=== PATIENT | female | born 1955 | race Caucasian/White ===

== ENCOUNTER 2018-10-06 13:25 | Outpatient (CLI) | END 2018-10-06 13:26 | disposition home or self-care (01) | LOC: LAB 13:25 | PROVIDERS: ATTEND Family Medicine | DX: I10 Essential (primary) hypertension (principal) | CPT/HCPCS: 36415; 80053; 80061; 85025 ==

== ENCOUNTER 2018-10-15 08:13 | Outpatient (CLI) ==
--- NOTE | 2018-10-16 08:04 | MRI ---
EXAM: Brain MRI with without contrast. HISTORY: Onset of chorea symptoms a few months ago. COMPARISON: None. TECHNIQUE: Multiplanar, multisequence MR images were acquired of the brain without contrast. FINDINGS: The midline structures are central and there is no cerebellar tonsillar ectopia. The vent ricles, sulci and cisterns are mildly enlarged. There are no abnormal extra-axial fluid collections. The brain parenchyma has no diffusion restriction to suggest acute hypoperfusion or infarction. Ther e is a small posterior left frontal gatito hole and a left frontal ventriculostomy tract with small to moderate area of surrounding gliosis in the anterior left frontal lobe that extends to the left front al horn of the lateral ventricle. The surrounding gliosis is larger than is typical for ventriculost guanaco tract and likely represents an area of encephalomalacia. There is also a small focal area of cys tic encephalomalacia in the more anterior superomedial left frontal lobe that has an ovoid 5 mm x 3 m m cystic component and surrounding hyperintense T2 signal gliosis. There is a chronic lacuna or dila neda perivascular space in the anterior superior medial right frontal lobe (image 18) and several dila neda perivascular spaces are also noted in the bilateral parietal subcortical and periventricular whit e matter. There are a moderate number of small T2 hyperintensities in the supratentorial white matte r and a possible small focal T2 hyperintensity in the lateral left middle cerebellar peduncle at its junction with the cerebellum. A chronic petechial hemorrhage is present in the left thalamus. A pun ctate focus of dark gradient echo signal is also present in the anterior inferior left basal ganglia with dark gradient echo signal. This may represent a micro calcification that may be vascular and le ss likely a chronic petechial hemorrhage. The corpus callosum is normal. 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 The pituitary gland is enlarged and extends into the suprasellar cistern. It measures in its entiret y 9.5 mm AP by 14.2 mm TX by 11.7 mm CC. It extends into the suprasellar cistern anterior to the opt ic chiasm which is mildly elevated. The pituitary gland has a bilobed configuration with a crescenti c component of intermediate T1 signal intensity inferiorly that may represent normal residual gland a nd a mildly hyperintense T1 / FLAIR and hypointense T2 ovoid component superiorly that extends from t he sella into the suprasellar cistern. This probably represents a complex cystic lesion which measur es 6.8 mm AP by 8.6 mm TX by 8.5 mm CC. Dedicated pituitary MRI could better define the anatomy. There are no intraorbital masses. Two small focal areas of focal mucosal thickening are present shanti g the anterior wall of the left maxillary sinus. Remainder of the paranasal sinuses, middle ears and mastoids are unremarkable. There is no abnormal contrast enhancement in the internal auditory canal s or labyrinthine structures. There is a well-circumscribed 1.4 cm AP by 1 cm TX by 1.5 cm CC epidermal inclusion cyst in the right lateral cheek. Expected flow voids are present in the major intracranial arteries and dural venous sinuses. IMPRESSION: 1. Mild diffuse cerebral volume loss, moderate chronic ischemic small vessel disease and small area of cystic encephalomalacia anterior superomedial left frontal lobe. This may be post-traumatic or po st-infarctive. 2. 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 This may represent a focal area of post-traumatic or post-infarctive encephalomalacia associated with the ventriculostomy tract. 3. Unexpected result. Mildly enlarged pituitary gland with a 6.8 mm AP by 8.6 mm TX by 8.5 mm CC co mplex mildly hyperintense T1, dark T2 lesion that extends into the suprasellar cistern abutting the a nterior optic chiasm which is mildly elevated. Clinical considerations include a complex pituitary c yst or cystic lesion. Tumor is considered less likely. Dedicated pituitary MRI could better define the anatomy. 4. Chronic petechial hemorrhage, left thalamus. 5. No hydrocephalus or acute cerebral infarct.
== END 2018-10-15 08:14 | disposition home or self-care (01) ==
LOC: RAD 08:13
PROVIDERS: ATTEND Family Medicine
DX: G25.5 Other chorea (principal); R27.0 Ataxia, unspecified

== ENCOUNTER 2018-10-17 11:57 | Outpatient (CLI) | END 2018-10-17 11:58 | disposition home or self-care (01) | LOC: RHC-LAB 11:57 → FCC-LAB 11:58 | PROVIDERS: ATTEND Family Medicine | DX: G25.5 Other chorea (principal); E23.6 Other disorders of pituitary gland; R93.89 Abnormal findings on diagnostic imaging of other specified body structures | CPT/HCPCS: 36415; 83001; 83002; 84146; 84305; 84443 ==

== ENCOUNTER 2018-10-18 14:17 | Outpatient (CLI) | END 2018-10-18 14:18 | disposition home or self-care (01) | LOC: RHC-LAB 14:17 → FCC-LAB 14:18 | PROVIDERS: ATTEND Family Medicine | DX: G25.5 Other chorea (principal); E23.6 Other disorders of pituitary gland; R93.89 Abnormal findings on diagnostic imaging of other specified body structures | CPT/HCPCS: 82530 ==

== ENCOUNTER 2018-10-25 14:00 | Outpatient (RCR) ==
--- NOTE | 2018-10-10 16:22 | RS.OPPTEV2 ---
Date of Note: 10/10/18 Visit #: 1 Number of visits approved by Insurance: pending Date of Evaluation: 10/10/18 Payer Source: Medicaid Surgery Performed?: No Treatment Diagnosis: chorea, ataxia, decreased strength, decreased balance. History of Condition/Mechanism of Injury:: pt reports she has had some difficulty with walking. No definite injury reported. Prior Level of Function.....Patient was independent with: Work/Vocation, Ambulation/Mobility, Community Integration/Access Level of Function: pt is independent with amb without AD, indepenent with ADL's Functional Limitations: Bending, Squatting, Ambulation, Community Access/ Integration Current Subjective/complaints:: pt reports she had been having increased difficulty walking, however feels has gotten a little better. No recent falls, states she is very careful with stairs due to visual deficits. Treatment Side (optional): N/A *Precautions: fall precautions Medical History Medical History: Hypertension, Arthritis Medical History Comments:: histoplasmosis Surgical History Comments:: 2 eye surgeries, L wrist ORIF, Smoking Status: Former smoker Hx Home Medications: Losartan for blood pressure Patient's Goals: be stronger and more steady on my feet. Get back to walking 1 mile per day. Functional Outcome Measure Dynamic Gait: 17 - G Codes & Severity Modifier G Codes & Modifier: n/a Source of G Code score: n/a Observation - Observation Inspection: pt demonstrates choreic movements. Posture: Forward Head, Rounded Shoulders Handedness: Right Gait - Gait Pattern General Gait Pattern Observation: Ataxic Gait Gait Comments: pt amb with ataxic gi General Range of Motion: BUE WFL's. BLE WFL's Muscle Strength: BUE 4+/5. BLE hip flex 4/5, knee flex/ext 4+/5, ankle DF/PF 4+ /5 Palpation Palpation Findings: None/Normal Sensation - Sensation Right Upper Extremity: Intact/Normal Left Upper Extremity: Intact/Normal Right Lower Extremity: Intact/Normal Left Lower Extremity: Intact/Normal Balance - Sitting Balance Static Sitting Balance: Normal Dynamic Sitting Balance: Normal - Standing Balance Static Standing Balance: Good Dynamic Standing Balance: Fair - Comments Balance Assessment Comments: Dyn gait index 17/24 risk of falls. Gait speed 0.96 meters/sec consistent with community ambulator Interventions - Exercise/Activities/Manual Therapy Exercises/Activities: pt performed BLE isometric hip add, resisted hip abd and resisted hip flex with green theraband, sit to/from stand from chair without using UE, bridging 5-10 reps. Manual Therapy: n/a HOME EXERCISE PROGRAM: pt given written HEP including: isometric hip add, resisted hip abd and resisted hip flex with green t band, bridging, sit to/from stand from chair without using UE. - Charges Timed Code Treatment Minutes: 51 Total Treatment Time: 59 Procedures billed for this date of service:: alciraal low, ex EVALUATION COMPLEXITY LEVEL EVALUATION COMPLEXITY LEVEL: HISTORY: Low, EXAM OF BODY SYSTEMS: Medium, CLINICAL PRESENTATION: Medium, CLINICAL DECISION MAKING: Low Assessment Assessment: pt present with ataxic gait, decreased strength, balance as well as demonstrates choreic movements. Feel pt would benefit from skilled PT for therex for core strengthening, dyn balance as well as LE strengthening to decrease risk of falls and improve functional mobility. Patient Education: Home Exercise Program, Education of Plan of Care Rehab Potential: Good Short Term Goals Goal #1: pt independent with initial HEP Goal to be met by: 10/26/18 Goal #2: Improve BLE strength 5/5 Goal to be met by: 10/26/18 Goal #3: Improve dyn gait index 19/24 Goal to be met by: 10/26/18 Goal #4: Improve gait speed 1.0 meters/sec Goal to be met by: 10/26/18 Take Out Waiter/Waitress Goals Goal #1: pt report increased ability to perform normal daily activities w no falls Goal to be met by: 11/09/18 Goal #2: pt with dyn gait index 21/24 to be consistent with low risk of falls Goal to be met by: 11/09/18 Goal #3: pt able to amb up/down steps reciprocally no LOB Goal to be met by: 11/09/18 Plan - Treatment to be Provided Procedures: Therapeutic Exercises, Therapeutic Activity, Gait Training, Neuromuscular Rehab, Patient Education Modalities: No Modalities - Treatment Plan Frequency: 2-3x a week Duration: 4 weeks Dates of Take Out Waiter/Waitress Goals: 11/09/18 Expiration date of current Insurance Approval:: pending - Treatment Code (1) Chorea Code(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
--- NOTE | 2018-10-16 15:23 | RS.OPPTDN ---
Subjective Date of Note: 10/16/18 Visit #: 2 Number of visits approved by Insurance: Pending Date of Evaluation: 10/10/18 Payer Source: Medicaid Treatment Diagnosis: chorea, ataxia, decreased strength, decreased balance. Current Subjective/complaints:: Patient reports she feels she did well with exercise today and will check on getting cuff weights for HEP. *Precautions: fall precautions Interventions - Exercise/Activities/Manual Therapy Exercises/Activities: 3# for alt hook-lying hip flexion and 3# SAQ. 2# for SLR. Red theraband for resisted ankle df. Isometric hip flexion and isometric hip add with ball. LTR with ball. Bridging. In sitting, bilateral shoulder flexion while holding ball, then horizontal abd to both sides. Sit to/from stand from chair without using UE. Discussed home safety and HEP. Patient given copy of new exercises. Total minutes of Exercise: 42mins Manual Therapy: n/a HOME EXERCISE PROGRAM: pt given written HEP including: isometric hip add, resisted hip abd and resisted hip flex with green t band, bridging, sit to/from stand from chair without using UE. - Charges Timed Code Treatment Minutes: 42mins Total Treatment Time: 42mins Procedures billed for this date of service:: EX3 Assessment: Patient attentive to instruction and appears motivated to progress with exercise. Patient Education: Home Exercise Program, Home Safety, Activity Modification Patient demonstrates compliance with HEP?: Yes Short Term Goals Goal #1: pt independent with initial HEP Goal to be met by: 10/26/18 Progress towards Goal:: Progressing Goal #2: Improve BLE strength 5/5 Goal to be met by: 10/26/18 Goal #3: Improve dyn gait index Goal to be met by: 10/26/18 Goal #4: Improve gait speed 1.0 meters/sec Goal to be met by: 10/26/18 Box Strapper Goals Goal #1: pt report increased ability to perform normal daily activities w no falls Goal to be met by: 11/09/18 Goal #2: pt with dyn gait index to be consistent with low risk of falls Goal to be met by: 11/09/18 Goal #3: pt able to amb up/down steps reciprocally no LOB Goal to be met by: 11/09/18 Plan Dates of Box Strapper Goals: 11/09/18 Expiration date of current Insurance Approval:: 11/09/18 PLAN: Progress with exercise and with balance activities to increase safety with all functional activities.
--- NOTE | 2018-10-19 13:31 | RS.OPPTDN ---
Subjective Date of Note: 10/18/18 Visit #: 3 Number of visits approved by Insurance: NA Date of Evaluation: 10/10/18 Payer Source: Medicaid Treatment Diagnosis: chorea, ataxia, decreased strength, decreased balance. Current Subjective/complaints:: Reports she has only worked on HEP a little. States she will increase times per day. *Precautions: fall precautions Interventions - Exercise/Activities/Manual Therapy Exercises/Activities: 3# for alt hook-lying hip flexion and 3# SAQ. 2# for SLR. Red theraband for resisted ankle df. Isometric hip flexion and isometric hip add with ball. LTR with ball. Isometric ankle inversion with ball. Bridging. In sitting, bilateral shoulder flexion while holding ball, then horizontal abd to both sides. Green theraband for scap retraction. Side stepping at hand rail. Patient given copy of new exercises. Total minutes of Exercise: 45mins Manual Therapy: n/a HOME EXERCISE PROGRAM: pt given written HEP including: isometric hip add, resisted hip abd and resisted hip flex with green t band, bridging, sit to/from stand from chair without using UE. - Charges Timed Code Treatment Minutes: 45mins Total Treatment Time: 45mins Procedures billed for this date of service:: EX3 Assessment: Patient progressing with strengthening and balance activity. Patient Education: Body/Joint mechanics, Home Exercise Program Patient demonstrates compliance with HEP?: Yes Short Term Goals Goal #1: pt independent with initial HEP Goal to be met by: 10/26/18 Progress towards Goal:: Met Goal #2: Improve BLE strength 5/5 Goal to be met by: 10/26/18 Goal #3: Improve dyn gait index Goal to be met by: 10/26/18 Goal #4: Improve gait speed 1.0 meters/sec Goal to be met by: 10/26/18 Residential Goals Goal #1: pt report increased ability to perform normal daily activities w no falls Goal to be met by: 11/09/18 Goal #2: pt with dyn gait index to be consistent with low risk of falls Goal to be met by: 11/09/18 Goal #3: pt able to amb up/down steps reciprocally no LOB Goal to be met by: 11/09/18 Plan Dates of Executive Marketing Assistant Goals: 11/09/18 Expiration date of current Insurance Approval:: 11/09/18 PLAN: Progress strengthening and high level balance activity.
--- NOTE | 2018-10-22 15:29 | RS.OPPTDN ---
Subjective Date of Note: 10/22/18 Visit #: 4 Number of visits approved by Insurance: Pending Date of Evaluation: 10/10/18 Payer Source: Medicaid Treatment Diagnosis: chorea, ataxia, decreased strength, decreased balance. Current Subjective/complaints:: Patient reports she is doing HEP and feels she is seeing progress with her strength and coordination. States she purchased small adjustable cuff weights. *Precautions: fall precautions Interventions - Exercise/Activities/Manual Therapy Exercises/Activities: 3# for alt hook-lying hip flexion and 3# SAQ. Increased to 3# for SLR. Began alt UE and LE lifts in [id number] or " bug" with 1# to each wrist and 3# to each ankle. Isometric hip flexion and isometric hip add with ball. LTR with ball and bilateral LE lift with ball. Isometric ankle inversion with ball. Bridging. Green theraband for hip abd in hook-lying. In sitting, bilateral shoulder flexion while holding ball and 1# to each wrist, then horizontal abd to both sides. Green theraband for scap retraction. Ended with patient back in supine with assist for alt UE and LE flex or " bug" with 1# to wrists and 3# to ankles. Total minutes of Exercise: 49mins Manual Therapy: n/a HOME EXERCISE PROGRAM: pt given written HEP including: isometric hip add, resisted hip abd and resisted hip flex with green t band, bridging, sit to/from stand from chair without using UE. - Charges Timed Code Treatment Minutes: 49mins Total Treatment Time: 52mins Procedures billed for this date of service:: EX3 Assessment: Increased challenges to UE/LE coordination and strengthening. Patient Education: Home Exercise Program, Activity Modification Patient demonstrates compliance with HEP?: Yes Short Term Goals Goal #1: pt independent with initial HEP Goal to be met by: 10/26/18 Progress towards Goal:: Met Goal #2: Improve BLE strength 12/02 Goal to be met by: 10/26/18 Progress towards Goal:: Progressing Goal #3: Improve dyn gait index Goal to be met by: 10/26/18 Goal #4: Improve gait speed 1.0 meters/sec Goal to be met by: 10/26/18 Hr Manager Goals Goal #1: pt report increased ability to perform normal daily activities w no falls Goal to be met by: 11/09/18 Progress towards goal: Progressing Goal #2: pt with dyn gait index to be consistent with low risk of falls Goal to be met by: 11/09/18 Goal #3: pt able to amb up/down steps reciprocally no LOB Goal to be met by: 11/09/18 Plan Dates of Usp Goals: 11/09/18 Expiration date of current Insurance Approval:: 11/09/18 PLAN: Progress with strengthening and coordination exercises to increase patients safety and functional activity level.
--- NOTE | 2018-10-25 16:06 | RS.OPPTDN ---
Subjective Date of Note: 10/25/18 Visit #: 5 Number of visits approved by Insurance: pending Date of Evaluation: 10/10/18 Payer Source: Medicaid Treatment Diagnosis: chorea, ataxia, decreased strength, decreased balance. Current Subjective/complaints:: Patient reports she is getting stronger and seems to have better balance and coordination. *Precautions: fall precautions Interventions - Exercise/Activities/Manual Therapy Exercises/Activities: All in supine. 3# for alt hook-lying hip flexion and 3# SAQ. 3# for SLR. Alt LE lifts with 3# to ankles and 3# Wand for overhead flexion in hook-lying. Isometric hip flexion and isometric hip add with ball. LTR with ball and bilateral LE lift with ball. Isometric ankle inversion with ball. Bodyblade overhead. Bridging. Green theraband for hip abd in hook-lying. In sitting, bilateral shoulder flexion while holding ball and 1# to each wrist, then horizontal abd to both sides. Green theraband for scap retraction. Stationary bike [id number] (not included in direct time). Began leg press 45#, 3s/ 15reps. Total minutes of Exercise: 49mins/59mins Manual Therapy: n/a HOME EXERCISE PROGRAM: pt given written HEP including: isometric hip add, resisted hip abd and resisted hip flex with green t band, bridging, sit to/from stand from chair without using UE. - Charges Timed Code Treatment Minutes: 49mins Total Treatment Time: 59mins Procedures billed for this date of service:: EX3 Assessment: Patient progressing with strengthening and reporting improvement with balance and coordination. Patient Education: Home Exercise Program Patient demonstrates compliance with HEP?: Yes Short Term Goals Goal #1: pt independent with initial HEP Goal to be met by: 10/26/18 Progress towards Goal:: Met Goal #2: Improve BLE strength 12/02 Goal to be met by: 10/26/18 Progress towards Goal:: Progressing Goal #3: Improve dyn gait index Goal to be met by: 10/26/18 Goal #4: Improve gait speed 1.0 meters/sec Goal to be met by: 10/26/18 [facility] Goals Goal #1: pt report increased ability to perform normal daily activities w no falls Goal to be met by: 11/09/18 Progress towards goal: Progressing Goal #2: pt with dyn gait index to be consistent with low risk of falls Goal to be met by: 11/09/18 Goal #3: pt able to amb up/down steps reciprocally no LOB Goal to be met by: 11/09/18 Plan Dates of Supervisor Ship Maintenance Services Goals: 11/09/18 Expiration date of current Insurance Approval:: 11/09/18 PLAN: Progress with strengthening and balance activity to increase functional gait and activity level.
== END 2018-10-28 23:59 ==
PROVIDERS: ATTEND Family Medicine
DX: G25.5 Other chorea (principal); R27.0 Ataxia, unspecified

== ENCOUNTER 2018-11-01 14:00 | Outpatient (RCR) ==
--- NOTE | 2018-10-30 15:52 | RS.OPPTDN ---
Subjective Date of Note: 10/30/18 Visit #: 6 Number of visits approved by Insurance: pending Date of Evaluation: 10/10/18 Payer Source: Medicaid Treatment Diagnosis: chorea, ataxia, decreased strength, decreased balance. Current Subjective/complaints:: Patient reports she is working on HEP. States she feels her balance and coordination are better. *Precautions: fall precautions Interventions - Exercise/Activities/Manual Therapy Exercises/Activities: All in supine. 3# for alt hook-lying hip flexion and 3# SAQ. 3# for SLR. Double SAQ with 3# to each ankle with ball between feet. Alt LE lifts with 3# to ankles and 3# Wand for overhead flexion in hook-lying. Isometric hip flexion and isometric hip add with ball. LTR with ball with alt direction horz shoulder abd with ball. Resistive LTR with blue theraband. UE horz shldr abd and UE diagonals with blue theraband. Isometric ankle inversion with ball. Bridging. Blue theraband for hip abd in hook-lying. Resistive hip abd with knee in ext with blue theraband. In sitting, bilateral shoulder flexion while holding ball and 1# to each wrist, then horizontal abd to both sides. Green theraband for scap retraction with wand. Stationary bike x4mins ( not included in direct time). Side-stepping, heel toe, and [place] walking at [facility]. Mini-squats, toe-ups, and alt hip abd. UE and LE ext at wall leanding on large therapy ball, patient has difficulty and performs single UE and single LE lifts. Ball chest passing. Total minutes of Exercise: 54mins Manual Therapy: n/a HOME EXERCISE PROGRAM: pt given written HEP including: isometric hip add, resisted hip abd and resisted hip flex with green t band, bridging, sit to/from stand from chair without using UE. Blue theraband for resist hip abd. - Charges Timed Code Treatment Minutes: 54mins Total Treatment Time: 54mins Procedures billed for this date of service:: EX4 Assessment: Patient progressing with strengthening and balance activities. Patient Education: Home Exercise Program Patient demonstrates compliance with HEP?: Yes Short Term Goals Goal #1: pt independent with initial HEP Goal to be met by: 10/26/18 Progress towards Goal:: Met Goal #2: Improve BLE strength 5/5 Goal to be met by: 10/26/18 Progress towards Goal:: Progressing Goal #3: Improve dyn gait index Goal to be met by: 10/26/18 Progress towards Goal:: Progressing Goal #4: Improve gait speed 1.0 meters/sec Goal to be met by: 10/26/18 Usp Goals Goal #1: pt report increased ability to perform normal daily activities w no falls Goal to be met by: 11/09/18 Progress towards goal: Progressing Goal #2: pt with dyn gait index to be consistent with low risk of falls Goal to be met by: 11/09/18 Goal #3: pt able to amb up/down steps reciprocally no LOB Goal to be met by: 11/09/18 Plan Dates of Specimen Collector Goals: 11/09/18 Expiration date of current Insurance Approval:: 11/09/18 PLAN: Progress strengthening and balance work to increase safety and functional activity level.
--- NOTE | 2018-11-01 16:21 | RS.OPPTDN ---
Subjective Date of Note: 11/01/18 Visit #: 7 Number of visits approved by Insurance: pending Date of Evaluation: 10/10/18 Payer Source: Medicaid Treatment Diagnosis: chorea, ataxia, decreased strength, decreased balance. Current Subjective/complaints:: Patient reports therapy has helped her with strength, balance, and coordination. *Precautions: fall precautions Interventions - Exercise/Activities/Manual Therapy Exercises/Activities: All in supine. 3# for alt hook-lying hip flexion and 3# SAQ. SLR. Double SAQ increased to 4# to each ankle with ball between feet. Alt LE lifts with 4# to ankles and 3# Wand for overhead flexion in hook-lying. Double SAQ with ball between feet, working on slow and controlled movements. Isometric hip flexion and isometric hip add with ball. Resistive LTR with green theraband. UE horz shldr abd and UE diagonals with blue theraband. Isometric ankle inversion with ball. Blue theraband for hip abd in hook-lying. Resistive hip abd with knee in ext with blue theraband. In sitting, bilateral shoulder flexion while holding ball and 1# to each wrist, then horizontal abd to both sides. Green theraband for scap retraction with wand. Ball toss. Stationary bike x4mins (not included in direct time). Leg press 45#, 35reps slow pace. Side-stepping, heel toe, and [place] walking at [facility]. Mini- squats, toe-ups, and alt hip abd. Step-ups at stepper board, multiple reps no LOB. UE ext at wall leanding on large therapy ball. Back to mat table lying prone for alt UE and LE lifts for trunk strength and coordination. Total minutes of Exercise: 54mins Manual Therapy: n/a HOME EXERCISE PROGRAM: pt given written HEP including: isometric hip add, resisted hip abd and resisted hip flex with green t band, bridging, sit to/from stand from chair without using UE. Blue theraband for resist hip abd. - Objective Findings Observations,measurements,etc.: Patients demos improvement in Gait Speed Test to 1.3m/sec and Dynamic Gait Index Score increased to 18/24. - Charges Timed Code Treatment Minutes: 54mins Total Treatment Time: 54mins Procedures billed for this date of service:: EX4 Assessment: Patient has progressed and increased gait speed test. She will continue HEP to build strength and work on balance. Patient Education: Body/Joint mechanics, Home Exercise Program, Activity Modification Patient demonstrates compliance with HEP?: Yes Short Term Goals Goal #1: pt independent with initial HEP Goal to be met by: 10/26/18 Progress towards Goal:: Met Goal #2: Improve BLE strength 12/02 Goal to be met by: 10/26/18 Progress towards Goal:: Progressing Goal #3: Improve dyn gait index Goal to be met by: 10/26/18 Progress towards Goal:: Partially Met Comments:: Goal #4: Improve gait speed 1.0 meters/sec Goal to be met by: 10/26/18 Progress towards Goal:: Met (Now has gait speed 1.3 m/sec) Brush Clearer Surveying Goals Goal #1: pt report increased ability to perform normal daily activities w no falls Goal to be met by: 11/09/18 Progress towards goal: Met Goal #2: pt with dyn gait index to be consistent with low risk of falls Goal to be met by: 11/09/18 Progress towards goal: Progressing Goal #3: pt able to amb up/down steps reciprocally no LOB Goal to be met by: 11/09/18 Progress towards goal: Met Plan Dates of Prison Goals: 11/09/18 Expiration date of current Insurance Approval:: 11/09/18 PLAN: Discharge with HEP.
--- NOTE | 2018-11-01 16:26 | RS.QUICKDC ---
Discharge from PT Date of Discharge: 11/01/18 Number of Visits: 7 Reason for Discharge: Patient progressed with treatment and met 4 treatment goals. She increased her Gait Speed Test to 1.3 m/sec which puts her in the "able to safely cross the street" category. She is independent in HEP and will continue. Discharge with HEP.
== END 2018-11-27 23:59 ==
PROVIDERS: ATTEND Family Medicine
DX: G25.5 Other chorea (principal); R27.0 Ataxia, unspecified; R26.0 Ataxic gait; R26.89 Other abnormalities of gait and mobility; M62.81 Muscle weakness (generalized)

== ENCOUNTER 2022-12-13 17:46 | Observation (INO) ==
[2022-12-13] MEDS ORDERED: SODIUM CHLORIDE 500 ML IV STA (18:51)
--- NOTE | 2022-12-13 18:51 | ED.PDOC ---
General ED Provider: Dr. ROSY CONNELL MD Chief Complaint: Weakness Stated Complaint: PATIENT WITH A HISTORY OF CVA 2 YEARS AGO, RIGHT HEMIPARESIS, HAS INCREASING GENERALIZED WEAKNESS, WEIGHT LOSS, ATAXIC GAIT, CONFUSION PROGRESSIVE FOR PAST 6 MONTHS, DENIES CHEST PAIN, DYSPNEA, NAUSEA, EMESIS, Time Seen by Provider: 12/13/22 18:40 Mode of Arrival: Wheelchair Information Source: Patient Primary Care Provider: LORAINE NÚÑEZ Nursing and Triage Documentation Reviewed and Agree: Yes Does patient meet sepsis criteria?: No System Inflammatory Response Syndrome: Not Applicable Sepsis Protocol: For patient's 13 years and over: Temp is 96.8 and below OR 101 and greater Pulse >90 BPM Resp >20/minute Acutely Altered Mental Status Are patient's symptoms suggestive of a new infection, such as: -Pneumonia -Skin, Soft Tissue -Endocarditis -UTI -Bone, Joint Infection -Implantable Device -Acute Abdominal Infection -Wound Infection -Meningitis -Blood Stream Catheter Infection -Unknown Review of Systems Review Of Systems Constitutional: Reports Weakness Eyes: Reports No symptoms; Denies Blindness, Blurred vision or Vision change Ears, Nose, Mouth, Throat: Reports No symptoms; Denies Ear pain or Ear discharge Respiratory: Reports No symptoms; Denies Cough, Orthopnea or Short of air Cardiac: Reports No symptoms; Denies Chest pain, Edema, Irregular heart rate or Lightheadedness GI: Reports No symptoms; Denies Abdomen distended, Abdominal pain or Blood streaked bowels Musculoskeletal: Reports No symptoms; Denies Back pain, Gout, Joint pain or Kristina int swelling Skin: Reports No symptoms; Denies Bruising, Change in color or Change in hair/nails Neurological: Reports No symptoms and Cognitive dysfunction; Denies Tonic-Clonic seizures, Unable to move lower ext or Unable to move upper ext Endocrine: Reports No symptoms; Denies Excessive sweating, Flushing or Intolerance to cold Hematologic/Lymphatic: Reports No symptoms; Denies Anemia or Blood clots All Other Systems: Reviewed and Negative [facility] Medical History (Updated 12/13/22 @ 22:45 by ROSY CONNELL MD) Calculus of kidney N20.0 - Calculus of kidney (ICD-10) Histoplasmosis B39.9 - Histoplasmosis, unspecified (ICD-10) Hypertension I10 - Essential (primary) hypertension (ICD-10) Post menopausal problems N95.9 - Unspecified menopausal and perimenopausal disorder (ICD-10) Family History Mother Cancer Hypertension FATHER Cerebrovascular accident Hypertension BROTHER No problems noted. BROTHER No problems noted. 19 CHILD No problems noted. Social History Smoking and tobacco status: Former smoker Surgical History History of ear, nose, and throat (ENT) surgery Z98.890 - Other specified postprocedural states (ICD-10) History of orthopedic surgery (~2014) Z98.890 - Other specified postprocedural states (ICD-10) Female Reproductive History Menstrual Hx Hysterectomy: No Hx Tubal Ligation: No Physical Exam Physical Exam Appearance: Reports Cachectic Ill-appearing: Not Applicable Pain Distress: Not Applicable Eyes: Reports RAUL, EOMI and Conjunctiva clear; Denies Conjunctiva inflammed ENT: Reports Ears normal, Nose normal and Oropharynx normal; Denies TMs Occluded Neck: Supple Respiratory: Reports Airway patent; Denies Breath sounds diminished Cardiovascular: Reports RRR and Pulses normal; Denies Irregular rhythm or Tachycardia GI/: Reports Soft, Nontender, No masses and Bowel sounds normal; Denies No Organomegaly, Tender or Mass Musculoskeletal: Reports Normal strength and ROM intact Skin: Reports Normal color Neurological: Reports Sensation intact, Motor intact, Reflexes intact and Cranial nerves intact Psychiatric: Reports Affect appropriate and Mood appropriate Interpretation Radiology Interpretation Radiology Interpretation By: Radiologist Radiology Results: Negative Exam Interpreted: Portable CXR Xray Comments: CHEST XRAY NEGATIVE Filter Changing Technician Time of Filter Changing Technician Interpretation: 19:15 Rate: Normal Rhythm: Sinus Ectopy: None EKG Interpretation Time of EKG #1: 19:05 Rate: Normal Rhythm: Sinus Ectopy: None Holstein: NL ST Segment: Normal Interpretation: EKG INTERPRETED BY MYSELF, NO ECTOPY, LEFT ATRIAL ENLARGEMENT, NO PROLONGAT Physician Notification Case Discussed Physician Notified: HOSPITALIST EMERALD Time of Notification: 22:18 Comments: FOR ADMIT TO OBSERVATION Critical Care Note Critical Care Note Total Critical Care Time (mins): 0 Course Course 12/13/22 19:14 12/13/22 19:14 Orders, Labs, Meds: Lab Review 12/13/22 12/13/22 19:14 21:37 WBC 5.31 RBC 4.03 L Hgb 13.5 Hct 39.4 MCV 97.8 MCH 33.5 H MCHC 34.3 RDW Coeff of Quique 13.0 Plt Count 240 Immature Gran % (Auto) 0.0 Neut % (Auto) 73.5 Lymph % (Auto) 13.6 Winston % (Auto) 10.4 H Eos % (Auto) 1.9 Baso % (Auto) 0.6 Neut # (Auto) 3.9 Lymph # (Auto) 0.7 Winston # (Auto) 0.6 Eos # (Auto) 0.1 Baso # (Auto) 0.0 Immature Gran # (Auto) 0.0 PT 10.9 INR 1.05 Sodium 137.8 Potassium 4.03 Chloride 104.5 Carbon Dioxide 32.6 H Anion Gap 4.73 BUN 26.0 H Creatinine 0.99 Estimated GFR (MDRD) 56.00 BUN/Creatinine Ratio 26.26 Glucose 81.4 Calcium 8.99 Total Bilirubin 0.53 AST 24.7 ALT 20.2 Alkaline Phosphatase 60.2 Troponin I < 0.012 Total Protein 6.50 Albumin 3.86 Globulin 2.64 Albumin/Globulin Ratio 1.46 Urine Color Yellow Urine Clarity Slightly Urine pH 7.0 Ur Specific [place] 1.015 Urine Protein Negative Urine Glucose (UA) Negative Urine Ketones Negative Urine Blood 2+ H Urine Nitrite Negative Urine Bilirubin Negative Urine Urobilinogen 1.0 H Ur Leukocyte Esterase 2+ H Urine Microscopic RBC 20-30 Urine Microscopic WBC 2-5 Ur Squamous Epith Cells 0-2 Orders Category Date Time Status EKG-(ED ONLY) Stat CARDIO 12/13/22 18:51 Completed TELEMETRY MONITORING TELE CARE 12/13/22 18:51 Active IV [ED IV/MEDIPORT/POWERPORT] .ONCE EMERGENCY 12/13/22 18:51 Active CBC W/ AUTO DIFF Stat LAB 12/13/22 19:14 Completed CMP [COMPREHENSIVE METABOLIC PANEL] Stat LAB 12/13/22 19:14 Completed PT WITH INR Stat LAB 12/13/22 19:14 Completed SARS COV-2 RNA RAPID FCO Stat LAB 12/13/22 Ordered TROPONIN I Stat LAB 12/13/22 19:14 Completed URINALYSIS C & S IF INDICATED Stat LAB 12/13/22 21:37 Completed 0.9 % Sodium Chloride [Saline Flush] MEDS 12/13/22 18:51 Active 1 syr IVF PRN PRN Potassium Chloride [K-Dur] MEDS 12/13/22 20:02 Discontinued 40 meq PO ONCE STA Sodium Chloride 0.9% [Sodium Chloride] 500 ml MEDS 12/13/22 18:51 Active IV 100 mls/hr CHEST, 1V AP ONLY Stat RADS 12/13/22 18:[address] HEAD W/O CONTRAST Stat RADS 12/13/22 18:51 Completed Medications Generic Name Dose Route Start Last Admin Trade Name Freq PRN Reason Stop Dose Admin Sodium Chloride 500 mls @ 100 mls/hr 12/13/22 18:51 12/13/22 19:51 Sodium Chloride IV 12/13/22 23:50 100 mls/hr .Q5H STA Administration Sodium Chloride 1 syr 12/13/22 18:51 0.9% Sodium Chloride 10 Ml Disp.Syrin IVF PRN PRN To flush IV Discontinued Medications Generic Name Dose Route Start Last Admin Trade Name Freq PRN Reason Stop Dose Admin Potassium Chloride 40 meq 12/13/22 20:02 12/13/22 20:37 Potassium Chloride 20 Meq Tab PO 12/13/22 20:03 Not Given ONCE STA Vital Signs: Temp Pulse Resp BP Pulse Ox 12/13/22 18:13 98.6 F 70 16 157/109 H 96 Discharge Plan Discharge Patient Disposition: PLACED OBSERVATION Discharge Problem: Urinary tract infection, Adult failure to thrive Prescriptions: No Action No Reported Medications Did you review [place] FILLING MACHINE TENDER for ALL controlled substances?: Not Applicable ED Provider: ROSY CONNELL Condition: Stable Physician Progress Note: MDM HISTORY OBTAINED BY PATIENT AND HER SON. [] PATIENT WITH A HISTORY OF CVA 2 YEARS AGO, RIGHT HEMIPARESIS, HAS INCREASING GENERALIZED WEAKNESS, WEIGHT LOSS, ATAXIC GAIT, CONFUSION PROGRESSIVE FOR PAST 6 MONTHS, DENIES CHEST PAIN, DYSPNEA, NAUSEA, EMESIS, ALL LABS,INTERPRETED BY MYSELF AND ARE NORMAL EXCEPT FOR URINALYSIS LEUKOCYTE ESTERASE 2+ AFTER 2 SETS OF BLOOD CULTURES, ADMINISTERED ROCEPHIN 1 GM IVPB DIFF DIAGNOSIS: 1)URINARY TRACT INFECTION 2)FAILURE TO THRIVE 3)MALNUTRITION 2217 CONSULTED HOSPITALIST EMERALD FOR ADMIT TO OBSERVATION IMPRESSION: 1. Atrophy. 2. Microangiopathic ischemic change. 3. Atherosclerosis. 4. No intracranial hemorrhage. 5. mild encephalomalacia in the left frontal lobe at the site of a small gatito hole. 6. Otherwise unremarkable noncontrast CT scan of the brain.
--- NOTE | 2022-12-13 19:17 | DI ---
EXAM: CHEST ONE-VIEW HISTORY: Cough COMPARISON: None FINDINGS: The cardiomediastinal silhouette is normal. The pulmonary vasculature is normal. No cons olidating infiltrates are detected. Calcified granulomas are noted in the left upper lobe. No pneum othoraces or pleural effusions. IMPRESSION: 1. No acute cardiopulmonary disease. .
[2022-12-13 19:19] LABS: BASOPHILS % (AUTO) 0.6 % (0.0-3.0); EOSINOPHILS # (AUTO) 0.1 K/ul (0.0-0.7); EOSINOPHILS % (AUTO) 1.9 % (0.0-7.0); HEMATOCRIT 39.4 % (37.0-47.0); HEMOGLOBIN 13.5 g/dl (12.0-16.0); LYMPHOCYTES # (AUTO) 0.7 K/uL (0.60-3.4); LYMPHOCYTES % (AUTO) 13.6 (10.0-50.0); MEAN CORPUSCULAR HEMOGLOBIN 33.5 pg (27.0-31.0); MEAN CORPUSCULAR HGB CONC 34.3 (31.8-35.4); MEAN CORPUSCULAR VOLUME 97.8 fl (81.0-99.0); MONOCYTES # (AUTO) 0.6 K/uL (0.4-2.0); MONOCYTES % (AUTO) 10.4 (0-10); NEUTROPHILS # (AUTO) 3.9 K/ul (2.0-6.9); NEUTROPHILS % (AUTO) 73.5 % (42.2-75.2); PLATELET COUNT 240 10^3/uL (140-440); RED BLOOD COUNT 4.03 10^6/ul (4.20-5.40); WHITE BLOOD COUNT 5.31 K/ul (4.6-10.2)
--- NOTE | 2022-12-13 19:28 | CT ---
EXAMINATION: HEAD CT WITHOUT CONTRAST HISTORY: Confusion. Altered mental status. TECHNIQUE: Noncontrast CT of the brain was performed with images acquired from skull base to vertex. 2-D coronal and sagittal reformatted images were obtained from the axial source images. Contrast Dose: None. CT Dose Reduction Techniques Performed: Yes. COMPARISON: 02/11/2020. FINDINGS: Topogram demonstrates no significant abnormality. Intraparenchymal hemorrhage: None. Parenchyma: Mild encephalomalacia in the left frontal lobe at the site of a gatito hole. Claros and whit e matter differentiation is otherwise normal. Small benign calcifications in the right frontal lobe and left basal ganglia. No mass effect or midline shift. Chronic: Decreased attenuation of the periventricular white matter consistent with microangiopathic i schemic change. Vascular calcifications consistent with arthrosclerosis. Extra-axial spaces and basal cisterns: Normal. Ventricles: Enlargement of the ventricles and subarachnoid spaces consistent with atrophy. Paranasal sinuses and mastoid air cells: Visualized portions of paranasal sinuses are clear. Mastoid air cells are clear. Orbits: Normal visualized portions. Sella/Skull Base: Normal. Other: Scalp and visualized soft tissues are normal. Left frontal gatito hole. Calvarium is otherwise normal. IMPRESSION: 1. Atrophy. 2. Microangiopathic ischemic change. 3. Atherosclerosis. 4. No intracranial hemorrhage. 5. mild encephalomalacia in the left frontal lobe at the site of a small gatito hole. 6. Otherwise unremarkable noncontrast CT scan of the brain. All CT scans are performed using dose optimization techniques as appropriate to the performed exam an d include at least one of the following: Automated exposure control, adjustment of the mA and/or kV according t o size, and the use of iterative reconstruction technique.
[2022-12-13 19:31] LABS: PROTHROMBIN TIME 10.9 SEC (9.3-11.0)
[2022-12-13 19:32] LABS: ALANINE AMINOTRANSFERASE 20.2 U/L (0-35); ALBUMIN 3.86 g/dL (3.5-5.0); ALKALINE PHOSPHATASE 60.2 U/L (53-141); ASPARTATE AMINO TRANSFERASE 24.7 U/L (14-36); BILIRUBIN,TOTAL 0.53 mg/dL (0.2-1.3); CALCIUM 8.99 mg/dL (8.4-10.2); CARBON DIOXIDE 32.6 mmol/L (22-30.0); CHLORIDE 104.5 mmol/L (98-107); CREATININE 0.99 mg/dL (0.60-1.30); GLUCOSE 81.4 mg/dL (74-106); POTASSIUM 4.03 mmol/L (3.5-5.1); SODIUM 137.8 mmol/L (134.5-145)
[2022-12-13 19:44] LABS: TROPONIN I < 0.012 ng/ml (0.0000-0.120)
[2022-12-13] MEDS ORDERED: K-DUR PO STA (20:02)
[2022-12-13 21:50] LABS: BILIRUBIN,URINE Negative (NEGATIVE); CLARITY,URINE Slightly (CLEAR); COLOR,URINE Yellow (YELLOW); GLUCOSE, URINE (UA) Negative (NEGATIVE); KETONES,URINE Negative (NEGATIVE); LEUKOCYTE ESTERASE ,URINE 2+ (NEGATIVE); NITRITE,URINE Negative (NEGATIVE); PROTEIN,URINE Negative (NEGATIVE); URINE, BLOOD 2+ (NEGATIVE)
[2022-12-13 21:51] LABS: SQUAMOUS EPITHELIAL CELL,UR 0-2 (0-5); URINE RBC, MICROSCOPIC 20-30 (0-2)
[2022-12-13] MEDS ORDERED: ROCEPHIN 1 GM/50 ML D5W 1 GM/50 ML BAG IV STA (22:29)
[2022-12-13 22:35] LABS: SARS COV-2 RNA RAPID NAAT NEGATIVE (NEGATIVE)
--- NOTE | 2022-12-14 00:27 | CT ---
EXAM: CT CHEST WITH CONTRAST History: Cough Technique: [address] chest following intravenous contrast FINDINGS: Focal consolidative change of the left upper lobe measuring 1.7 x 1.5 cm biapical pleural parenchymal scarring. The lungs are globally hyperexpanded. Trace atherosclerotic calcification of the aorta without dissection. Maximum ascending diameter of the aorta 3.5 cm. No mediastinal lympha denopathy. No acute chest wall abnormality. See abdominal CT for upper abdomen. Impression: 1. Mass-like consolidative change in the left upper lobe may represent scarring, infection or neopla sm. Further evaluation recommended, tissue sampling or PET scan. 2. Biapical pleural parenchymal scarring 3. The global hyperexpansion probably representing component of chronic obstructive pulmonary diseas e. All CT scans are performed using dose optimization techniques as appropriate to the performed exam an d include at least one of the following: Automated exposure control, adjustment of the mA and/or kV according t o size, and the use of iterative reconstruction technique.
[2022-12-14] MEDS: LACTATED RINGERS 1,000 ML IV SCH ×3 (00:30→21:03)
[2022-12-14 00:32] VITALS: BMI 14.7
--- NOTE | 2022-12-14 00:36 | CT ---
EXAM: CT OF THE ABDOMEN AND PELVIS WITH CONTRAST History: Urinary tract infection Technique: 2.[address] of the abdomen and pelvis following intravenous contrast FINDINGS: The lung bases are clear. No significant liver abnormality. The adrenals, pancreas and s pleen are unremarkable. The stomach and hiatus are unremarkable.The gallbladder appears normal. Thom ateral extrarenal pelvis symmetrically distended. Nonobstructing calcifications in the right kidney measuring up to 8 mm diameter. No ureterolithiasis is seen. Atherosclerotic calcification of the ao rta without aneurysm. Bowel loops demonstrate normal caliber. No inflamatory change seen in the mes entery or retroperitoneum. The appendix is normal. Pelvic genitourinary structures appear normal. Colonic diverticula of the sigmoid. No inflammatory change in the pelvic fat. No acute abnormality of the abdominal or pelvic skeleton. Left hip arthro plasty. Impression: 1. No inflammatory process, bowel or urinary obstruction 2. Nonobstructing nephrolithiasis of the right kidney 3. Colonic diverticulosis All CT scans are performed using dose optimization techniques as appropriate to the performed exam an d include at least one of the following: Automated exposure control, adjustment of the mA and/or kV according t o size, and the use of iterative reconstruction technique.
[2022-12-14 05:01] LABS: BASOPHILS % (AUTO) 0.7 % (0.0-3.0); EOSINOPHILS # (AUTO) 0.1 K/ul (0.0-0.7); EOSINOPHILS % (AUTO) 2.5 % (0.0-7.0); HEMATOCRIT 37.8 % (37.0-47.0); HEMOGLOBIN 12.7 g/dl (12.0-16.0); IMMATURE GRANULOCYTE % (AUTO) 0.2 % (0.0-5.0); LYMPHOCYTES # (AUTO) 0.7 K/uL (0.60-3.4); LYMPHOCYTES % (AUTO) 11.4 (10.0-50.0); MEAN CORPUSCULAR HGB CONC 33.6 (31.8-35.4); MEAN CORPUSCULAR VOLUME 98.2 fl (81.0-99.0); MONOCYTES # (AUTO) 0.7 K/uL (0.4-2.0); MONOCYTES % (AUTO) 12.1 (0-10); NEUTROPHILS # (AUTO) 4.2 K/ul (2.0-6.9); NEUTROPHILS % (AUTO) 73.1 % (42.2-75.2); PLATELET COUNT 224 10^3/uL (140-440); RED BLOOD COUNT 3.85 10^6/ul (4.20-5.40); WHITE BLOOD COUNT 5.69 K/ul (4.6-10.2)
[2022-12-14 05:13] LABS: ALANINE AMINOTRANSFERASE 18.4 U/L (0-35); ALBUMIN 3.13 g/dL (3.5-5.0); ALKALINE PHOSPHATASE 48.9 U/L (53-141); ASPARTATE AMINO TRANSFERASE 22.2 U/L (14-36); BILIRUBIN,TOTAL 0.62 mg/dL (0.2-1.3); BLOOD UREA NITROGEN 23.4 mg/dL (7-17); CALCIUM 8.3 mg/dL (8.4-10.2); CARBON DIOXIDE 31.5 mmol/L (22-30.0); CHLORIDE 104.1 mmol/L (98-107); CREATININE 0.96 mg/dL (0.60-1.30); GLUCOSE 88.2 mg/dL (74-106); POTASSIUM 3.86 mmol/L (3.5-5.1); SODIUM 136.5 mmol/L (134.5-145); TOTAL PROTEIN 5.6 g/dL (6.3-8.2)
--- NOTE | 2022-12-14 10:53 | RS.PTINEVL ---
Subjective Patient information Date of Evaluation: 12/14/22 Date of Arrival on Unit: 12/13/22 Admitted From:: Home Diagnosis: UTI, failure to thrive, weakness, ataxic gait, Usual Living Arrangement: Son Living Arrangement Comments: Son lives with her however he works and she is alone during the day. Home Environment: House and Stairs (few) Medical History: Hypertension and CVA/TIA Medical History Comments:: previous head injury, histoplasmosis, chorea athetosis Medications: see chart Subjective Information/ Patient Comments:: pt states that she has not had any falls however noted old bruise to L scapula. pt also reports that she does not use any assistive device at home. Level of function Prior to this admission, the patient could do the following:: Independent Ambulation Abilities prior to this admission: pt states she amb independently in her home prior to being seen in hospital. pt is poor historian. Current Level of Function: Partially Dependent Current Equipment Used at Home: pt states she does not have equipment at home. Interventions Objective Patient Orientation: Person, Place and Time Current Interventions: IV's and Telemetry Observation: old bruise L scapula, pt is frail in appearance. Range of Motion ROM Right Upper Extremity AROM: WFL's Left Upper Extremity AROM: WFL's Right Lower Extremity AROM: WFL's Left Lower Extremity AROM: WFL's Muscle Strength Muscle Strength Right Upper Extremity: Mild Weakness (shld flex4-/5, elbow flex/ext 4/5 ) Left Upper Extremity: Mild Weakness (grossly 4 to 4+/5) Right Lower Extremity: Mild Weakness (hip flex 4-/5, knee flex/ext 4/5, ankle DF/PF 4/5 ) Left Lower Extremity: Mild Weakness (hip flex 4-/5, knee flex/ext 4/5, ankle DF/PF 4/5) Sensation Sensation Right Upper Extremity: Intact/Normal Left Upper Extremity: Intact/Normal Right Lower Extremity: Intact/Normal Left Lower Extremity: Intact/Normal Palpation Palpation Findings: None/Normal Coordination Tests Bilateral: Finger to Nose: Mild Deviation Balance Sitting Balance and Reactions Static Sitting Balance: Fair Dynamic Sitting Balance: Fair (fair-) Sitting Equilibrium Reactions: Delayed Left and Delayed Right Sitting Protective Reactions: Delayed Left and Delayed Right Standing Balance and Reactions Static Standing Balance: Poor Dynamic Standing Balance: Poor Standing Equilibrium Reactions: Delayed Left and Delayed Right Standing Protective Reactions: Delayed Left and Delayed Right Comments Balance Assessment Comments: pt with constant choreatic movements Functional Mobility Bed Mobility Rolling R/L: Supervision Supine to Sit: Supervision Transfers Sit to Stand: CGA (CGA to min ) Stand to Sit: CGA Comments:: on/off commode CGA to min x 1 Safety Awareness Safety Awareness: Poor TETE INDEX SCORE: n/a Ambulation Ambulation Assistive Device Used: Rolling Walker Orthotic/Prosthetic Device: No Distance: 20ft x 2 Assistance needed with Ambulation: Min Assist Quality of Ambulation: pt with constant choreatic movements. pt requires assist with rwx placement. Gait Deviations: Ataxic gait, Forward posture, Short stride, Deviates from path and Lacks step continuity Factors Affecting Ambulation: Decreased Balance, Weakness, Decreased Coordination, Decreased Safety and Limited Endurance Treatment time Time with patient Length of Evaluation: 19 Total treatment time: 31 Patient Education Education Patient Education: Activity Modification and Education of Plan of Care Teaching Recipient: Patient Teaching Methods: Discussion Assessment Assessment Problem List:: Decreased level of function, Requires training/education, Decreased safety/Risk of falls and Weakness Rehab Potential: Fair Further Therapy Indicated?: Yes Candidate for Swing Bed for Therapy Services?: Feel pt may be a candidate for swing bed depending on prior level of function and if pt has a qualifying stay. Comments: Feel pt is not safe to be at home alone due to high fall risk. Feel pt would benefit from 24 hour care, home health PT vs outpatient PT Evaluation Complexity: HISTORY: Medium, EXAM OF BODY SYSTEMS: Medium, CLINICAL PRESENTATION: Medium and CLINICAL DECISION MAKING: Medium Patient's Goal(s): Get stronger and go back home. Short Term Goals GOAL #1: pt independent with rolling and scooting in bed. Goal to be met by: 12/16/22 GOAL #2: Transfer sup to/from sit independently Goal to be met by: 12/16/22 GOAL #3: Transfer sit to/from stand SBA Goal to be met by: 12/16/22 GOAL #4: pt amb 100ft with AAD with CGA x 1 no LOB Goal to be met by: 12/16/22 GOAL #5: Improve LE strength to 4+/5 Goal to be met by: 12/17/22 Mcfp Goals GOAL #1: pt transfer sup to/from sit to/from stand independently. Goal to be met by: 12/19/22 GOAL #2: pt amb functional household distances with AAD with SBA to CGA Goal to be met by: 12/19/22 GOAL #3: Improve dyn stand balance fair Goal to be met by: 12/19/22 Plan Plan of Care: Therapeutic EX, Neuromuscular Re-Educ and Therapeutic Activity Frequency of Treatment: 1-2 X day, as tolerated Duration of Treatment: 5 days Anticipated Discharge Destination: Home Treatment Diagnosis (ICD 10 Codes): ataxic gait R 26.0 balance impaired R 26.81 chorea weakness M62.81 Has the Physician been added for Co-signature?: Yes
--- NOTE | 2022-12-14 11:23 | RS.SLPCNOT ---
Speech Case Note Date of Note: 12/14/22 Title: Speech consult Note: Speech consult was acknowledged with RN and hospitalist. Hospitalist reported primary concern is finding out pt's baseline and UTI results. RN reported she is collecting more information about pt's baseline from son upon his arrival to the hospital. RN and hospitalist deemed necessary for KETTLE ROOM HELPER to enter pt's room to screen her with her meal tray. KETTLE ROOM HELPER entered pt room and asked about swallowing difficulty. Pt reported symptoms of food sticking in throat that clears with a drink, but no coughing or choking episodes. Pt continued to report she 'takes a long time to eat." At the bedside with sips of thin liquids and one bite of food, pt did not have overt s/s of aspiration. KETTLE ROOM HELPER discussed the PO intake observation with hospitalist and RN. The KETTLE ROOM HELPER reported primary problem is sustaining nutrition with quantity of PO intake and duration of PO intake. Pt is at risk for malnutrition and dietitian consult was recommended. At this time, KETTLE ROOM HELPER will complete full bedside swallow evaluation if warranted to determine if strategies or diet modifications may improve pt's quantity of PO intake. Thank you for this consult.
--- NOTE | 2022-12-14 11:50 | RS.OTINEVL ---
Subjective Patient information Date of Evaluation: 12/14/22 Date of Arrival on Unit: 12/13/22 Admitted From:: Home Diagnosis: UTI, Failure to thrive PRECAUTIONS: Weakness, CVA 2 years ago. Usual Living Arrangement: Son Living Arrangement Comments: Son lives with her ;however, he works and she is alone during the day. Home Environment: House and Stairs (few) Medical History: Hypertension and CVA/TIA Medical History Comments:: previous head injury, histoplasmosis, chorea athetosis Surgical History Comments:: 2 eye surgeries, L wrist ORIF, Medications: see chart Subjective Information/ Patient Comments:: Pt reports she does not use a rolling walker at home or any device to walk. Level of function Prior to this admission, the patient could do the following:: Independent Ambulation Current Level of Function: Partially Dependent Current Equipment Used at Home: pt states she does not have equipment at home. Interventions Objective Patient Orientation: Person and Situation Current Interventions: IV's Observation: Pt is very thin. Pt is oriented to place, person, and situation. Pt has ataxic gait. 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 Pt is able to turn her socks on her feet. Pt is independent with doffing her under clothes and completing personal hygiene. Interventions ROM Right Upper Extremity AROM: WFL's Left Upper Extremity AROM: WFL's Strength Right Upper Extremity: Mild Weakness Left Upper Extremity: Mild Weakness Comments:: Strength in RUE is 4-/5, and LUE is 4/5. Sensation Right Upper Extremity: Intact/Normal Left Upper Extremity: Intact/Normal Balance Sitting Balance Static Sitting Balance: Good Dynamic Sitting Balance: Good Standing Balance Static Standing Balance: Fair Dynamic Standing Balance: Fair ADL Skills Self Feeding Self Feeding: Set Up Only Grooming Grooming: CGA Grooming Set-up: Sitting Bathing Bathing UE: CGA and 1 person assist Bathing LE: CGA and 1 person assist Bathing Set-up: Shower Dressing Dressing UE: CGA Dressing LE: CGA Toilet Management Toilet Hygiene: Independent Toilet Clothing Management: Min Assist and 1 person assist Functional Mobility Bed Mobility Rolling R/L: Independent Scooting: Independent Supine to Sit: Independent Sit to Supine: Independent Transfers Sit to Stand: Min Assist and 1 person assist Stand to Sit: Min Assist and 1 person assist Stand Pivot Transfers: Min Assist and 1 person assist Ambulation Weight Bearing Status: FWB Assistive Device Used: Rolling Walker Orthotic/Prosthetic Device: No Assistance needed with Ambulation: Min Assist Safety Awareness Safety Awareness: Fair TETE INDEX SCORE: . Additional Treatment Performed Additional units charged ADL: 12 Time with patient Length of Evaluation: 15 Total treatment time: 27 Activities Do you enjoy playing games?: Yes Would you be interested in leaving your room for activities?: Yes Would you enjoy group activities?: Yes Do you have difficulty with your vision?: Yes Patient Interests:: Watching Television and Visiting/Socializing Patient Education Patient Education: Home Safety and Education of Plan of Care Teaching Recipient: Patient Teaching Methods: Discussion and Demonstration Assessment Problem List:: Decreased level of function, Requires training/education, Decreased safety/Risk of falls and Weakness Rehab Potential: Good Further Therapy Indicated?: Yes Comments: Patient is not safe to be at home alone. Pt has bruising on Left scapula. Pt is very unsteady when walking. Evaluation Complexity: HISTORY: Medium, EXAM OF BODY SYSTEMS: Medium and CLINICAL DECISION MAKING: Medium Patient's Goal(s): To be able to go home and take care of herself. Short Term Goals Goals GOAL 1: Pt to increase BUE to 4+/5. Goal to be met by: 12/17/22 GOAL 2: Pt to increase independenc of self feeding to independent. Goal to be met by: 12/17/22 GOAL 3: Pt to increase transfers to toilet to be CGA. Goal to be met by: 12/17/22 Prison Goals GOAL 1: Pt to be Independent with ADLS. Goal to be met by: 12/18/22 GOAL 2: Pt to increase BUE strength to 5/5. Goal to be met by: 12/18/22 Progress towards goal: Progressing GOAL 3: Pt to increase toilet transfers to (I) with RW. Goal to be met by: 12/18/22 Plan Plan of Care: Therapeutic EX, Therapeutic Activity and Self-Care/Home Management Frequency of Treatment: 1-2 X day, as tolerated Duration of Treatment: 1 Week Anticipated Discharge Destination: Home Treatment Diagnosis (ICD 10 Codes): Weakness R53.1, Z74.1 Need for assistance with personal care. Has the Physician been added for Co-signature?: Yes
--- NOTE | 2022-12-14 12:44 | PCM ---
Date of Service Date Seen by Provider: 12/14/22 Time Seen by Provider: 09:00 Admit Day/Time Admission Date: 12/13/22 Admission Time: 22:25 Reason for Admission Chief Complaint: UTI,FAILURE TO THRIVE Hospital Provider Hospital Provider: [facility]ALD [facility] Primary Care Physician Primary Care Physician: LORAINE NÚÑEZ History of Present Illness History of Present Illness: Patient is a 67 year old female with pmhx of CVA, involuntary movements, who presented to ER with son for worsening weakness, involuntary movements, and weight loss. Patient had a negative CT head and CXR. Labs were unremarkable except for a suspect UA for UTI. Vitals stable. She was given rocephin and admitted to [facility]. Today the patient is feeling at her baseline although she is a poor historian. She is able to answer orientation questiosn appropriately and discussed history of CVA and left hip surgery, however she cannot recall any details regarding that history. She denies cp, sob, abd pain, difficulty urinating. She states she's had these "movements" for years. She knows she has lost weight but doesn't contribute it to anything specific. Spoke with patient's son Chaz who lives with her. He noticed weight loss at least within the past few months. States she's been eating and hasn't changed her diet. He states her involuntary movements of her extremities started when she had her stroke a few years ago, but they have worsened in the last two weeks. He feels she isn't comprehending as well and is talking a lot less than usual. She is having issues with walking. She's also having a lot of mood swings which he feels is unusual for her. Case Discussed With Case Discussed With: Patient's case was discussed with the ER Physicians, Dr. Dinero. 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 - Other chorea (ICD-10) CVA (cerebral vascular accident) I63.9 - Cerebral infarction, unspecified (ICD-10) Histoplasmosis B39.9 - Histoplasmosis, unspecified (ICD-10) History of histoplasmosis (10/17/18) Z86.19 - Personal history of other infectious and parasitic diseases (ICD- 10) Hypertension I10 - Essential (primary) hypertension (ICD-10) Post menopausal problems N95.9 - Unspecified menopausal and perimenopausal disorder (ICD-10) Surgical History (Updated 12/14/22 @ 12:49 by EMERALD GRAY PA-C) History of ear, nose, and throat (ENT) surgery Z98.890 - Other specified postprocedural states (ICD-10) History of orthopedic surgery (~2014) Z98.890 - Other specified postprocedural states (ICD-10) Family History Mother Cancer Hypertension FATHER Cerebrovascular accident Hypertension BROTHER No problems noted. BROTHER No problems noted. 19 CHILD No problems noted. Social History Smoking and tobacco status: Former smoker Alcohol intake: never Substance use type: does not use Allergies Allergies Allergy/AdvReac Type Severity Reaction Status Date / Time No Known Allergies Allergy Unverified 12/13/22 18:21 Current Medications Home Medications 1 [No Reported Medications] 12/13/22 [History Confirmed 12/13/22 Last Taken Unknown] Home Enoxaparin Sodium (Enoxaparin Sodium 40 Mg/0.4 Ml Syr) 40 mg SUBCUT DAILY ARLINE Lactated Ringer's (Lactated Ringers) 1,000 mls @ 100 mls/hr IV .Q10H ARLINE Last Admin: 12/14/22 10:44 Dose: 100 mls/hr CEFTRIAXONE/D5W 1 GM PREMIX (Rocephin 1 Gm/50 Ml D5w) 1 gm in 50 mls @ 75 mls/hr IV BEDTIME ARLINE Stop: 12/17/22 20:59 Sodium Chloride (0.9% Sodium Chloride 10 Ml Disp.Syrin) 1 syr IVF PRN PRN PRN Reason: To flush IV Discontinued Medications Sodium Chloride (Sodium Chloride) 500 mls @ 100 mls/hr IV .Q5H STA Stop: 12/13/22 23:50 Last Admin: 12/13/22 19:51 Dose: 100 mls/hr CEFTRIAXONE/D5W 1 GM PREMIX (Rocephin 1 Gm/50 Ml D5w) 1 gm in 50 mls @ 75 mls/hr IV ONCE STA Stop: 12/13/22 23:08 Last Admin: 12/13/22 22:34 Dose: 75 mls/hr Potassium Chloride (Potassium Chloride 20 Meq Tab) 40 meq PO ONCE STA Stop: 12/13/22 20:03 Last Admin: 12/13/22 20:37 Dose: Not Given Review of Systems Constitutional: Reports Recent Weight Loss and Weakness; Denies Sweats or Loss of appetite Head: Reports Normocephalic and Atraumatic Eyes: Denies Vision Changes Ears: Denies Pain or Drainage Nose: Denies Post Nasal Drip or Congestion Mouth: Denies Sores Throat: Denies Sore Throat or Difficulty Swallowing Cardiovascular: Denies Chest pain, Chest Pressure or Edema Respiratory: Denies Cough or Shortness of air Gastrointestinal: Denies Nausea, Vomiting, Diarrhea, Constipation, Black Tarry Stools or Abdominal pain Genitourinary: Denies Dysuria, Frequency or Incontinence Neurological: Reports Weakness and Other (+worsening involuntary movements of upper and lower ext. ); Denies Headache, Dizziness or Syncope Psychiatric: Denies Depression, Anxiety or Suicidal Physical examination Most Recent Vital Signs: Most Recent Vital Signs Temperature 97.6 F 12/14/22 10:49 Temperature Source Temporal Artery Scan 12/14/22 10:49 Temperature Source Infrared 12/13/22 18:13 Pulse Rate 59 L 12/14/22 10:49 Respiratory Rate 16 12/14/22 10:49 Blood Pressure 140/80 12/14/22 10:49 Blood Pressure Mean 100 12/14/22 10:49 Blood Pressure Left Arm 164/80 12/14/22 00:02 Blood Pressure Location Left Arm 12/14/22 10:49 Blood Pressure Position Sitting 12/14/22 10:49 O2 Sat by Pulse Oximetry 98 12/14/22 10:49 Oxygen Delivery Method Room Air 12/14/22 10:49 Height 5 ft 10 in 12/14/22 08:36 Weight 102 lb 12/14/22 08:36 Telemetry Type Remote Telemetry 12/14/22 07:00 Telemetry Monitoring Continues 12/14/22 07:00 Telemetry Heart Rate 49 L 12/14/22 07:00 EKG SC Interval 0.14 12/14/22 07:00 EKG QRS Interval 0.05 L 12/14/22 07:00 Telemetry Strip Reading SB 12/14/22 07:00 Appearance: Positive Alert and Oriented x3 (but poor historian) and Thin ([place]yl[place] eras malnourished ) Skin: Positive [place], Warm and Good Color HEENT: Positive Normocephalic and Atraumatic Neck: Positive Supple Chest/Lungs: Positive Symmetrical With Equal Breath Sounds and Clear to Auscultation Bilaterally; Negative Rales, Rhonci or Wheezes Heart: Positive RRR GI/: Positive Soft, Nontender, Bowel Sounds Normal and No Distention Musculoskeletal: Negative Tenderness Extremities: Positive Intact Peripheral Pulses; Negative Signs of Trauma or Edema Neurological: Positive Cranial Nerves Intact, Alert and Oriented; Negative Muscle Strength 5/5 in Upper and Lower Extremities Bilaterally (+Generalized weakness, but equal strength bilaterally. Has involuntary movements of upper and lower extremities at rest. ) Psychiatric: Positive Oriented x4, Appropriate Mood and Appropriate Affect; Negative Good Short-Term Recall or Good Long-Term Recall Labs This Visit Labs This Visit: Labs This Visit 12/13/22 12/13/22 12/13/22 19:14 21:37 21:50 WBC 5.31 RBC 4.03 L Hgb 13.5 Hct 39.4 MCV 97.8 MCH 33.5 H MCHC 34.3 RDW Coeff of Quique 13.0 Plt Count 240 Immature Gran % (Auto) 0.0 Neut % (Auto) 73.5 Lymph % (Auto) 13.6 White % (Auto) 10.4 H Eos % (Auto) 1.9 Baso % (Auto) 0.6 Neut # (Auto) 3.9 Lymph # (Auto) 0.7 White # (Auto) 0.6 Eos # (Auto) 0.1 Baso # (Auto) 0.0 Immature Gran # (Auto) 0.0 PT 10.9 INR 1.05 Sodium 137.8 Potassium 4.03 Chloride 104.5 Carbon Dioxide 32.6 H Anion Gap 4.73 BUN 26.0 H Creatinine 0.99 Estimated GFR (MDRD) 56.00 BUN/Creatinine Ratio 26.26 Glucose 81.4 Calcium 8.99 Total Bilirubin 0.53 AST 24.7 ALT 20.2 Alkaline Phosphatase 60.2 Troponin I < 0.012 Total Protein 6.50 Albumin 3.86 Globulin 2.64 Albumin/Globulin Ratio 1.46 TSH 1.250 Urine Color Yellow Urine Clarity Slightly Urine pH 7.0 Ur Specific Motley 1.015 Urine Protein Negative Urine Glucose (UA) Negative Urine Ketones Negative Urine Blood 2+ H Urine Nitrite Negative Urine Bilirubin Negative Urine Urobilinogen 1.0 H Ur Leukocyte Esterase 2+ H Urine Microscopic RBC 20-30 Urine Microscopic WBC 2-5 Ur Squamous Epith Cells 0-2 SARS CoV-2 RNA Rapid FCO Negative 12/14/22 04:43 WBC 5.69 RBC 3.85 L Hgb 12.7 Hct 37.8 MCV 98.2 MCH 33.0 H MCHC 33.6 RDW Coeff of Quique 13.0 Plt Count 224 Immature Gran % (Auto) 0.2 Neut % (Auto) 73.1 Lymph % (Auto) 11.4 White % (Auto) 12.1 H Eos % (Auto) 2.5 Baso % (Auto) 0.7 Neut # (Auto) 4.2 Lymph # (Auto) 0.7 White # (Auto) 0.7 Eos # (Auto) 0.1 Baso # (Auto) 0.0 Immature Gran # (Auto) 0.0 PT INR Sodium 136.5 Potassium 3.86 Chloride 104.1 Carbon Dioxide 31.5 H Anion Gap 4.76 BUN 23.4 H Creatinine 0.96 Estimated GFR (MDRD) 58.00 BUN/Creatinine Ratio 24.37 Glucose 88.2 Calcium 8.30 L Total Bilirubin 0.62 AST 22.2 ALT 18.4 Alkaline Phosphatase 48.9 L Troponin I Total Protein 5.60 L Albumin 3.13 L Globulin 2.47 Albumin/Globulin Ratio 1.26 TSH Urine Color Urine Clarity Urine pH Ur Specific Motley Urine Protein Urine Glucose (UA) Urine Ketones Urine Blood Urine Nitrite Urine Bilirubin Urine Urobilinogen Ur Leukocyte Esterase Urine Microscopic RBC Urine Microscopic WBC Ur Squamous Epith Cells SARS CoV-2 RNA Rapid FCO Imaging Imagining: EXAMINATION: HEAD CT WITHOUT CONTRAST HISTORY: Confusion. Altered mental status. TECHNIQUE: Noncontrast CT of the brain was performed with images acquired from skull base to vertex. 2-D coronal and sagittal reformatted images were obtained from the axial source images. Contrast Dose: None. CT Dose Reduction Techniques Performed: Yes. COMPARISON: 02/11/2020. FINDINGS: Topogram demonstrates no significant abnormality. Intraparenchymal hemorrhage: None. Parenchyma: Mild encephalomalacia in the left frontal lobe at the site of a gatito hole. Claros and white matter differentiation is otherwise normal. Small benign calcifications in the right frontal lobe and left basal ganglia. No mass effect or midline shift. Chronic: Decreased attenuation of the periventricular white matter consistent with microangiopathic ischemic change. Vascular calcifications consistent with arthrosclerosis. Extra-axial spaces and basal cisterns: Normal. Ventricles: Enlargement of the ventricles and subarachnoid spaces consistent with atrophy. Paranasal sinuses and mastoid air cells: Visualized portions of paranasal sinuses are clear. Mastoid air cells are clear. Orbits: Normal visualized portions. Sella/Skull Base: Normal. Other: Scalp and visualized soft tissues are normal. Left frontal gatito hole. Calvarium is otherwise normal. IMPRESSION: 1. Atrophy. 2. Microangiopathic ischemic change. 3. Atherosclerosis. 4. No intracranial hemorrhage. 5. mild encephalomalacia in the left frontal lobe at the site of a small gatito hole. 6. Otherwise unremarkable noncontrast CT scan of the brain. EXAM: CHEST ONE-VIEW HISTORY: Cough COMPARISON: None FINDINGS: The cardiomediastinal silhouette is normal. The pulmonary vasculature is normal. No consolidating infiltrates are detected. Calcified granulomas are noted in the left upper lobe. No pneumothoraces or pleural effusions. IMPRESSION: 1. No acute cardiopulmonary disease. EXAM: CT CHEST WITH CONTRAST History: Cough Technique: [address] chest following intravenous contrast FINDINGS: Focal consolidative change of the left upper lobe measuring 1.7 x 1.5 cm biapical pleural parenchymal scarring. The lungs are globally hyperexpanded. Trace atherosclerotic calcification of the aorta without dissection. Maximum ascending diameter of the aorta 3.5 cm. No mediastinal lymphadenopathy. No acute chest wall abnormality. See abdominal CT for upper abdomen. Impression: 1. Mass-like consolidative change in the left upper lobe may represent scarring, infection or neoplasm. Further evaluation recommended, tissue sampling or PET scan. 2. Biapical pleural parenchymal scarring 3. The global hyperexpansion probably representing component of chronic obstructive pulmonary disease. EXAM: CT OF THE ABDOMEN AND PELVIS WITH CONTRAST History: Urinary tract infection Technique: 2.[address] of the abdomen and pelvis following intravenous contrast FINDINGS: The lung bases are clear. No significant liver abnormality. The adrenals, pancreas and spleen are unremarkable. The stomach and hiatus are unremarkable.The gallbladder appears normal. Bilateral extrarenal pelvis symmetrically distended. Nonobstructing calcifications in the right kidney me asuring up to 8 mm diameter. No ureterolithiasis is seen. Atherosclerotic calcification of the aorta without aneurysm. Bowel loops demonstrate normal caliber. No inflamatory change seen in the mesentery or retroperitoneum. The appendix is normal. Pelvic genitourinary structures appear normal. Colonic diverticula of the sigmoid. No inflammatory change in the pelvic fat. No acute abnormality of the abdominal or pelvic skeleton. Left hip arthroplasty. Impression: 1. No inflammatory process, bowel or urinary obstruction 2. Nonobstructing nephrolithiasis of the right kidney 3. Colonic diverticulosis Review Statement Review Statement: I have independently reviewed and interpreted the labs/EKGs/imaging that were ordered by the ER provider. I have reviewed all outside records that are available currently in our EMR including imaging/notes/labs from previous visits. Plan Plan: A&P: 1. Acute metabolic encephalopathy in setting of UTI - Son feels patient is more confused and not her usual self. CT head negative. Labs unremarkable. UA suspect for UTI. Will treat with rocephin daily. Await urine culture. MRI brain ordered to r/o a recent stroke. Continue gentle hydration. 2. UTI - Plan as above 3. Left upper lobe lung consolidation - Concerning with her history of significant weight loss. Will require outpatient follow up with pulmonology. 4. Malnourishment with BM of 14.6 - Dietition and ST consult. 5. History of CVA - Request records from [facility] in [place]. 6. Asthenia in setting of UTI and malnourishment - PT/OT consult. DVT Prophylaxis: Lovenox Time Spent: Greater than 80 minutes spent with patient, 50% of the time spent with this patient was devoted to counseling and coordination of care. [facility] minutes spent discussing advance care planning. FULL CODE Admit to: Obs Discussed Plan of Care with Dr. Raysa Johnson. Medications Medication Orders: Medications Ordered Category Date Time Status 0.9 % Sodium Chloride [Saline Flush] MEDS 12/13/22 18:51 Active 1 syr IVF PRN PRN Ringers Lactated Solution [Lactated Ringers] 1,000 ml MEDS 12/13/22 23:45 Active IV 100 mls/hr
[2022-12-14] MEDS: LOVENOX SUBCUT SCH (15:42)
--- NOTE | 2022-12-14 16:01 | MRI ---
EXAM: BRAIN MRI WITHOUT CONTRAST HISTORY: Weakness, mood swings, worsening involuntary movement. TECHNIQUE: Multiplanar and multisequence MRI of the brain without the administration of intravenous contrast. COMPARISON: Brain CT dated 12/13/2022. Brain MRI dated 10/15/2018. FINDINGS: There is encephalomalacia in the left frontal lobe. Again seen is left frontal gatito hole. There is no intracranial mass. There is no acute ischemic infarct or acute intracranial hemorrhage. There is moderate cerebral parenchymal volume loss. There is no hydrocephalus. Scattered foci of T2/FLAIR hyperintense signal are present in the subcortical and periventricular whi te matter, most commonly seen in chronic white matter microvascular ischemic changes. Chronic lacunar infarcts are noted in bilateral periventricular white matter. The basilar cisterns are patent. The posterior fossa structures are within normal limits. 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 The paranasal sinuses and mastoid air cells are well aerated. The orbits are within normal limits. IMPRESSION: 1. No acute intracranial findings. 2. 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 3. Left frontal gatito hole. 4. Encephalomalacia in the left frontal lobe. 5. Moderate cerebral atrophy. 6. Chronic white matter microvascular ischemic changes. 7. Chronic lacunar infarcts in bilateral periventricular white matter.
[2022-12-14] MEDS ORDERED: ROCEPHIN 1 GM/50 ML D5W 1 GM/50 ML BAG IV SCH (21:00)
[2022-12-14] MEDS ORDERED: ZYPREXA IM ONE ×2 (21:55→22:30)
[2022-12-14] MEDS ORDERED: TYLENOL PO PRN (21:55)
[2022-12-14] MEDS ORDERED: ZOFRAN 4 MG/2 ML IVP PRN (21:58)
[2022-12-15 04:59] LABS: BASOPHILS % (AUTO) 0.5 % (0.0-3.0); EOSINOPHILS # (AUTO) 0.1 K/ul (0.0-0.7); EOSINOPHILS % (AUTO) 0.7 % (0.0-7.0); HEMATOCRIT 43.2 % (37.0-47.0); HEMOGLOBIN 14.6 g/dl (12.0-16.0); IMMATURE GRANULOCYTE % (AUTO) 0.3 % (0.0-5.0); LYMPHOCYTES # (AUTO) 0.5 K/uL (0.60-3.4); LYMPHOCYTES % (AUTO) 6.2 (10.0-50.0); MEAN CORPUSCULAR HEMOGLOBIN 32.8 pg (27.0-31.0); MEAN CORPUSCULAR HGB CONC 33.8 (31.8-35.4); MEAN CORPUSCULAR VOLUME 97.1 fl (81.0-99.0); MONOCYTES # (AUTO) 0.5 K/uL (0.4-2.0); MONOCYTES % (AUTO) 7.1 (0-10); NEUTROPHILS # (AUTO) 6.5 K/ul (2.0-6.9); NEUTROPHILS % (AUTO) 85.2 % (42.2-75.2); PLATELET COUNT 251 10^3/uL (140-440); RDW COEFFICIENT OF VARIATION 12.9 % (11.6-14.8); RED BLOOD COUNT 4.45 10^6/ul (4.20-5.40)
[2022-12-15 05:11] LABS: ALANINE AMINOTRANSFERASE 23.2 U/L (0-35); ALBUMIN 3.81 g/dL (3.5-5.0); ALKALINE PHOSPHATASE 65.7 U/L (53-141); ASPARTATE AMINO TRANSFERASE 37.5 U/L (14-36); BILIRUBIN,TOTAL 0.73 mg/dL (0.2-1.3); BLOOD UREA NITROGEN 18.1 mg/dL (7-17); CALCIUM 8.95 mg/dL (8.4-10.2); CARBON DIOXIDE 33.8 mmol/L (22-30.0); CHLORIDE 104.1 mmol/L (98-107); CREATININE 0.85 mg/dL (0.60-1.30); GLUCOSE 102.8 mg/dL (74-106); POTASSIUM 4.23 mmol/L (3.5-5.1); SODIUM 138.2 mmol/L (134.5-145); TOTAL PROTEIN 6.5 g/dL (6.3-8.2)
[2022-12-15] MEDS: LACTATED RINGERS 1,000 ML IV SCH (07:20)
[2022-12-15] MEDS: LOVENOX SUBCUT SCH (08:47)
[2022-12-15 10:54] VITALS: RESP 20; TEMP 97.5
--- NOTE | 2022-12-15 12:32 | DCSUM ---
Admission Date Admission Date: 12/13/22 Discharge Date Discharge Date: 12/15/22 Admission Diagnosis Admission Diagnosis: 1. Acute metabolic encephalopathy in setting of UTI 2. UTI Discharge Diagnosis Discharge Diagnosis: 1. Acute metabolic encephalopathy in setting of UTI - Ruled out, likely a slow decline. UTI ruled out. 2. UTI - ruled out 3. Left upper lobe lung consolidation - Concerning with her history of significant weight loss. Outpatient pulm referral made. 4. Malnourishment with BM of 14.6 - Recommend outpatient ST and dietition follow up 5. History of CVA 6. Asthenia in setting malnourishment - PT/OT outpatient. Hospital Provider Hospital Provider: EMREALD GRAY PA-C, [facility] Primary Care Physician Primary Care Physician: LORAINE NÚÑEZ Summary of History and Physical Summary of History and Physical: Patient is a 67 year old female with pmhx of CVA, involuntary movements, who presented to ER with son for worsening weakness, involuntary movements, and weight loss. Patient had a negative CT head and CXR. Labs were unremarkable except for a suspect UA for UTI. Vitals stable. She was given rocephin and admitted to [facility]. Today the patient is feeling at her baseline although she is a poor historian. She is able to answer orientation questiosn appropriately and discussed history of CVA and left hip surgery, however she cannot recall any details regarding that history. She denies cp, sob, abd pain, difficulty urinating. She states she's had these "movements" for years. She knows she has lost weight but doesn't contribute it to anything specific. Spoke with patient's son Chaz who lives with her. He noticed weight loss at least within the past few months. States she's been eating and hasn't changed her diet. He states her involuntary movements of her extremities started when she had her stroke a few years ago, but they have worsened in the last two weeks. He feels she isn't comprehending as well and is talking a lot less than usual. She is having issues with walking. She's also having a lot of mood swings which he feels is unusual for her. Hospital Course Subjective: Patient was treated with rocephin. Urine culture showed no growth. CT c/a/p showed left upper lung consolidation that is masslike. MRI brain was negative for acute findings. Labs unremarkable. VSS. Patient was very confused, trying to leave, and getting out of bed multiple times night of 12/14.. Her safety was in jeopardy and she was given zyprexa 5 mg IM to help with agitation. Son, Chaz, who is her primary caregiver and lives with her present today, day of discharge. Discussed our concerns regarding her malnourishment, unsteadiness, high fall risk. Offered intermediate placement but he declines at this time. Discussed assisted living although she may require more help than they could provide. He prefers to try to go home with home health at this time. Discussed in depth left lung abnormality and need for work out to r/o cause for weight loss. Pulm referral initiated, they will call with apt. He voiced understanding. Discussed body fitter recommendations and need for outpatient follow up to facilitate weight gain and hopefully help with her mentation and weakness. He however understands her confusion is likely part of her natural decline. Appearance: Pleasant, No Apparent Distress, Alert and Other (Thin, malnourished. ) HEENT: MMM CVS: No Murmur, No Rubs and No Gallop Abdomen: Soft and No Distention Respiratory: No Dyspnea Extremities: No Edema Vital Signs: Most Recent Vital Signs Temperature 97.5 F L 12/15/22 10:00 Temperature Source Temporal Artery Scan 12/15/22 10:00 Temperature Source Infrared 12/13/22 18:13 Pulse Rate 73 12/15/22 10:00 Respiratory Rate 20 12/15/22 10:00 Blood Pressure 152/91 H 12/15/22 10:00 Blood Pressure Mean 111 12/15/22 10:00 Blood Pressure Left Arm 164/80 12/14/22 00:02 Blood Pressure Location Left Arm 12/15/22 10:00 Blood Pressure Position Sitting 12/15/22 10:00 O2 Sat by Pulse Oximetry 98 12/15/22 10:00 Oxygen Delivery Method Room Air 12/15/22 10:00 Height 5 ft 10 in 12/14/22 08:36 Weight 102 lb 12/14/22 08:36 Telemetry Type Remote Telemetry 12/15/22 07:00 Telemetry Monitoring Continues 12/15/22 07:00 Telemetry Heart Rate 60 12/15/22 07:00 EKG [place] Interval 0.15 12/15/22 07:00 EKG QRS Interval 0.07 12/15/22 07:00 Telemetry Strip Reading SR 12/15/22 07:00 Imagin12/13/22 12/13/22 12/13/22 19:14 21:37 21:50 WBC 5.31 RBC 4.03 L Hgb 13.5 Hct 39.4 MCV 97.8 MCH 33.5 H MCHC 34.3 RDW Coeff of Quique 13.0 Plt Count 240B Immature Gran % (Auto) 0.0 Neut % (Auto) 73.5 Lymph % (Auto) 13.6 Love % (Auto) 10.4 H Eos % (Auto) 1.9 Baso % (Auto) 0.6 Neut # (Auto) 3.9 Lymph # (Auto) 0.7 Love # (Auto) 0.6 Eos # (Auto) 0.1 Baso # (Auto) 0.0 Immature Gran # (Auto) 0.0 PT 10.9 INR 1.05 Sodium 137.8 Potassium 4.03 Chloride 104.5 Carbon Dioxide 32.6 H Anion Gap 4.73 BUN 26.0 H Creatinine 0.99 Estimated GFR (MDRD) 56.00 BUN/Creatinine Ratio 26.26 Glucose 81.4 Calcium 8.99 Total Bilirubin 0.53 AST 24.7 ALT 20.2 Alkaline Phosphatase 60.2 Troponin I < 0.012 Total Protein 6.50 Albumin 3.86 Globulin 2.64 Albumin/Globulin Ratio 1.46 TSHB 1.250 Urine Color Yellow Urine Clarity Slightly D Urine pH 7.0 Ur Specific [place] 1.015 Urine Protein Negative Urine Glucose (UA) Negative Urine Ketones Negative Urine Blood 2+ H Urine Nitrite Negative Urine Bilirubin Negative Urine Urobilinogen 1.0 H Ur Leukocyte Esterase 2+ H Urine Microscopic RBC 20-30 Urine Microscopic WBC 2-5 Ur Squamous Epith Cells 0-2 SARS CoV-2 RNA Rapid FCO Negative 12/14/22 04:43 WBC 5.69 RBC 3.85 L Hgb 12.7 Hct 37.8 MCV 98.2 MCH 33.0 H MCHC 33.6 RDW Coeff of Quique 13.0 Plt Count 224 Immature Gran % (Auto) 0.2 Neut % (Auto) 73.1 Lymph % (Auto) 11.4 Love % (Auto) 12.1 H Eos % (Auto) 2.5 Baso % (Auto) 0.7 Neut # (Auto) 4.2 Lymph # (Auto) 0.7 Love # (Auto) 0.7 Eos # (Auto) 0.1 Baso # (Auto) 0.0 Immature Gran # (Auto) 0.0 PT INR Sodium 136.5 Potassium 3.86 Chloride 104.1 Carbon Dioxide 31.5 H Anion Gap 4.76 BUN 23.4 H Creatinine 0.96 Estimated GFR (MDRD) 58.00 BUN/Creatinine Ratio 24.37 Glucose 88.2 Calcium 8.30 L Total Bilirubin 0.62 AST 22.2 ALT 18.4 Alkaline Phosphatase 48.9 L Troponin I Total Protein 5.60 L Albumin 3.13 L Globulin 2.47 Albumin/Globulin Ratio 1.26 TSH Urine Color Urine Clarity Urine pH Ur Specific [place] Urine Protein Urine Glucose (UA) Urine Ketones Urine Blood Urine Nitrite Urine Bilirubin Urine Urobilinogen Ur Leukocyte Esterase Urine Microscopic RBC Urine Microscopic WBC Ur Squamous Epith Cells SARS CoV-2 RNA Rapid FCO Temperature 97.6 F 12/14/22 10:49 Temperature Source Temporal Artery Scan 12/14/22 10:49 Temperature Source Infrared 12/13/22 18:13 Pulse Rate 59 L 12/14/22 10:49 Respiratory Rate 16 12/14/22 10:49 Blood Pressure 140/80 12/14/22 10:49 Blood Pressure Mean 100 12/14/22 10:49 Blood Pressure Left Arm 164/80 12/14/22 00:02 Blood Pressure Location Left Arm 12/14/22 10:49 Blood Pressure Position Sitting 12/14/22 10:49 O2 Sat by Pulse Oximetry 98 12/14/22 10:49 Oxygen Delivery Method Room Air 12/14/22 10:49 Height 5 ft 10 in 12/14/22 08:36 Weight 102 lb 12/14/22 08:36 Telemetry Type Remote Telemetry 12/14/22 07:00 Telemetry Monitoring Continues 12/14/22 07:00 Telemetry Heart Rate 49 L 12/14/22 07:00 EKG NY Interval 0.14 12/14/22 07:00 EKG QRS Interval 0.05 L 12/14/22 07:00 Telemetry Strip Reading SB 12/14/22 07:00 Labs This Visit 12/13/22 12/13/22 12/13/22 19:14 21:37 21:50 WBC 5.31 RBC 4.03 L Hgb 13.5 Hct 39.4 MCV 97.8 MCH 33.5 H MCHC 34.3 RDW Coeff of Quique 13.0 Plt Count 240 Immature Gran % (Auto) 0.0 Neut % (Auto) 73.5 D Lymph % (Auto) 13.6 Love % (Auto) 10.4 H Eos % (Auto) 1.9 Baso % (Auto) 0.6 Neut # (Auto) 3.9 Lymph # (Auto) 0.7 Love # (Auto) 0.6 Eos # (Auto) 0.1 Baso # (Auto) 0.0 Immature Gran # (Auto) 0.0 PT 10.9 INR 1.05 Sodium 137.8 Potassium 4.03 Chloride 104.5 Carbon Dioxide 32.6 H Anion Gap 4.73 BUN 26.0 H Creatinine 0.99 Estimated GFR (MDRD) 56.00 BUN/Creatinine Ratio 26.26 Glucose 81.4 Calcium 8.99 Total Bilirubin 0.53 AST 24.7 ALT 20.2 Alkaline Phosphatase 60.2 Troponin I < 0.012 D Total Protein 6.50 Albumin 3.86 Globulin 2.64 Albumin/Globulin Ratio 1.46 TSH 1.250 Urine Color Yellow Urine Clarity Slightly Urine pH 7.0 Ur Specific [place] 1.015 Urine Protein Negative Urine Glucose (UA) Negative Urine Ketones Negative Urine Blood 2+ H Urine Nitrite Negative Urine Bilirubin Negative Urine Urobilinogen 1.0 H Ur Leukocyte Esterase 2+ H Urine Microscopic RBC 20-30 Urine Microscopic WBC 2-5 Ur Squamous Epith Cells 0-2 SARS CoV-2 RNA Rapid FCO Negative 12/14/22 04:43 WBC 5.69 RBC 3.85 L Hgb 12.7 Hct 37.8 MCV 98.2 MCH 33.0 H MCHC 33.6 RDW Coeff of Quique 13.0 Plt Count 224 Immature Gran % (Auto) 0.2 Neut % (Auto) 73.1 Lymph % (Auto) 11.4 Love % (Auto) 12.1 H Eos % (Auto) 2.5 Baso % (Auto) 0.7 Neut # (Auto) 4.2 Lymph # (Auto) 0.7 Love # (Auto) 0.7 Eos # (Auto) 0.1 Baso # (Auto) 0.0 Immature Gran # (Auto) 0.0 PT INR Sodium 136.5 Potassium 3.86 Chloride 104.1 Carbon Dioxide 31.5 H Anion Gap 4.76 BUN 23.4 H Creatinine 0.96 Estimated GFR (MDRD) 58.00 BUN/Creatinine Ratio 24.37 Glucose 88.2 Calcium 8.30 L Total Bilirubin 0.62 AST 22.2 ALT 18.4 Alkaline Phosphatase 48.9 L Troponin I Total Protein 5.60 L Albumin 3.13 L Globulin 2.47 Albumin/Globulin Ratio 1.26 TSH Urine Color Urine Clarity Urine pH Ur Specific [place] Urine Protein Urine Glucose (UA) Urine Ketones Urine Blood Urine Nitrite Urine Bilirubin Urine Urobilinogen Ur Leukocyte Esterase Urine Microscopic RBC Urine Microscopic WBC Ur Squamous Epith Cells SARS CoV-2 RNA Rapid FCO Imaging Imagining: EXAMINATION: HEAD CT WITHOUT CONTRAST HISTORY: Confusion. Altered mental status. TECHNIQUE: Noncontrast CT of the brain was performed with images acquired from skull base to vertex. 2-D coronal and sagittal reformatted images were obtained from the axial source images. Contrast Dose: None. CT Dose Reduction Techniques Performed: Yes. COMPARISON: 02/11/2020. FINDINGS: Topogram demonstrates no significant abnormality. Intraparenchymal hemorrhage: None. Parenchyma: Mild encephalomalacia in the left frontal lobe at the site of a gatito hole. [place] and white matter differentiation is otherwise normal. Small benign calcifications in the right frontal lobe and left basal ganglia. No mass effect or midline shift. Chronic: Decreased attenuation of the periventricular white matter consistent with microangiopathic ischemic change. Vascular calcifications consistent with arthrosclerosis. Extra-axial spaces and basal cisterns: Normal. Ventricles: Enlargement of the ventricles and subarachnoid spaces consistent with atrophy. Paranasal sinuses and mastoid air cells: Visualized portions of paranasal sinuses are clear. Mastoid air cells are clear. Orbits: Normal visualized portions. Sella/Skull Base: Normal. Other: Scalp and visualized soft tissues are normal. Left frontal gatito hole. Calvarium is otherwise normal. IMPRESSION: 1. Atrophy. 2. Microangiopathic ischemic change. 3. Atherosclerosis. 4. No intracranial hemorrhage. 5. mild encephalomalacia in the left frontal lobe at the site of a small gatito hole. 6. Otherwise unremarkable noncontrast CT scan of the brain. EXAM: CHEST ONE-VIEW HISTORY: Cough COMPARISON: None FINDINGS: The cardiomediastinal silhouette is normal. The pulmonary vasculature is normal. No consolidating infiltrates are detected. Calcified granulomas are noted in the left upper lobe. No pneumothoraces or pleural effusions. IMPRESSION: 1. No acute cardiopulmonary disease. EXAM: CT CHEST WITH CONTRAST History: Cough Technique: [address] chest following intravenous contrast FINDINGS: Focal consolidative change of the left upper lobe measuring 1.7 x 1.5 cm biapical pleural parenchymal scarring. The lungs are globally hyperexpanded. Trace atherosclerotic calcification of the aorta without dissection. Maximum ascending diameter of the aorta 3.5 cm. No mediastinal lymphadenopathy. No acute chest wall abnormality. See abdominal CT for upper abdomen. Impression: 1. Mass-like consolidative change in the left upper lobe may represent scarring, infection or neoplasm. Further evaluation recommended, tissue sampling or PET scan. 2. Biapical pleural parenchymal scarring 3. The global hyperexpansion probably representing component of chronic obstructive pulmonary disease. EXAM: CT OF THE ABDOMEN AND PELVIS WITH CONTRAST History: Urinary tract infection Technique: 2.[address] of the abdomen and pelvis following intravenous contrast FINDINGS: The lung bases are clear. No significant liver abnormality. The adrenals, pancreas and spleen are unremarkable. The stomach and hiatus are unremarkable.The gallbladder appears normal. Bilateral extrarenal pelvis symmetrically distended. Nonobstructing calcifications in the right kidney measuring up to 8 mm diameter. No ureterolithiasis is seen. Atherosclerotic calcification of the aorta without aneurysm. Bowel loops demonstrate normal caliber. No inflamatory change seen in the mesentery or retroperitoneum. The appendix is normal. Pelvic genitourinary structures appear normal. Colonic diverticula of the sigmoid. No inflammatory change in the pelvic fat. No acute abnormality of the abdominal or pelvic skeleton. Left hip arthroplasty. Impression: 1. No inflammatory process, bowel or urinary obstruction 2. Nonobstructing nephrolithiasis of the right kidney 3. Colonic diverticulosis EXAM: BRAIN MRI WITHOUT CONTRAST HISTORY: Weakness, mood swings, worsening involuntary movement. TECHNIQUE: Multiplanar and multisequence MRI of the brain without the administration of intravenous contrast. COMPARISON: Brain CT dated 12/13/2022. Brain MRI dated 10/15/2018. FINDINGS: There is encephalomalacia in the left frontal lobe. Again seen is left frontal gatito hole. There is no intracranial mass. There is no acute ischemic infarct or acute intracranial hemorrhage. There is moderate cerebral parenchymal volume loss. There is no hydrocephalus. Scattered foci of T2/FLAIR hyperintense signal are present in the subcortical and periventricular white matter, most commonly seen in chronic white matter microvascular ischemic changes. Chronic lacunar infarcts are noted in bilateral periventricular white matter. The basilar cisterns are patent. The posterior fossa structures are within normal limits. 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 The paranasal sinuses and mastoid air cells are well aerated. The orbits are within normal limits. IMPRESSION: 1. No acute intracranial findings. 2. 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 3. Left frontal gatito hole. 4. Encephalomalacia in the left frontal lobe. 5. Moderate cerebral atrophy. 6. Chronic white matter microvascular ischemic changes. 7. Chronic lacunar infarcts in bilateral periventricular white matter. Lab Results Last 24 Hours: 12/15/22 04:42 WBC 7.60 RBC 4.45 Hgb 14.6 Hct 43.2 MCV 97.1 MCH 32.8 H MCHC 33.8 RDW Coeff of Quique 12.9 Plt Count 251 Immature Gran % (Auto) 0.3 Neut % (Auto) 85.2 H Lymph % (Auto) 6.2 L Love % (Auto) 7.1 Eos % (Auto) 0.7 Baso % (Auto) 0.5 Neut # (Auto) 6.5 Lymph # (Auto) 0.5 L Love # (Auto) 0.5 Eos # (Auto) 0.1 Baso # (Auto) 0.0 Immature Gran # (Auto) 0.0 Sodium 138.2 Potassium 4.23 Chloride 104.1 Carbon Dioxide 33.8 H Anion Gap 4.53 BUN 18.1 H Creatinine 0.85 Estimated GFR (MDRD) 67.00 BUN/Creatinine Ratio 21.29 Glucose 102.8 Calcium 8.95 Total Bilirubin 0.73 AST 37.5 H ALT 23.2 Alkaline Phosphatase 65.7 Total Protein 6.50 Albumin 3.81 Globulin 2.69 Albumin/Globulin Ratio 1.41 Discharge Instructions Discharge Planning: DISCHARGE TO HOME WITH HOME HEALTH DX: WEAKNESS, MALNUTRITION DIET: PER DIETITION RECOMMENDATIONS, ENCOURAGE PROTEIN/CALORIES FOLLOW UP WITH PCP SCHEDULED HOME HEALTH ORDERED F/U WITH PULM FOR LEFT UPPER LUNG NODULE ACTIVITY: OUTPATIENT PT/OT YOU HAVE A HOSPITAL FOLLOW UP APPOINTMENT WITH YOUR PRIMARY CARE PROVIDER, DR. NÚÑEZ, ON November AT 1:45PM. SHOULD YOU NEED TO RESCHEDULE YOU CAN CONTACT THEIR OFFICE AT [phone]. YOU HAVE BEEN REFERRED TO [facility]. THEY WILL BE IN TOUCH WITH YOU TO SCHEDULE APPOINTMENT FOR [facility] [employer] MACHINIST. SHOULD YOU HAVE ANY QUESTIONS OR NEED TO CONTACT THEM, THEIR PHONE NUMBER IS [phone]. Discharge Planning > 70 minutes Medications Given This Visit: Medications Generic Name Dose Route Start Last Admin Trade Name Freq PRN Reason Stop Dose Admin Acetaminophen 650 mg 12/14/22 21:55 12/14/22 22:23 Acetaminophen 325 Mg Tablet PO 650 mg Q6H PRN Administration Pain Enoxaparin Sodium 40 mg 12/14/22 13:30 12/15/22 08:47 Enoxaparin Sodium 40 Mg/0.4 Ml Syr SUBCUT 40 mg DAILY ARLINE Administration Lactated Ringer's 1,000 mls @ 100 mls/hr 12/13/22 23:45 12/15/22 07:20 Lactated Ringers IV 100 mls/hr .Q10H ARLINE Administration CEFTRIAXONE/D5W 1 GM PREMIX 1 gm in 50 mls @ 75 mls/hr 12/14/22 21:00 12/14/22 21:03 Rocephin 1 Gm/50 Ml D5w IV 12/17/22 20:59 75 mls/hr BEDTIME ARLINE Administration Ondansetron HCl 4 mg 12/14/22 21:58 12/15/22 07:18 Ondansetron Hcl/Pf 4 Mg/2 Ml Sdv IVP 4 mg Q6H PRN Administration Nausea / Vomiting Sodium Chloride 1 syr 12/13/22 18:51 0.9% Sodium Chloride 10 Ml Disp.Syrin IVF PRN PRN To flush IV Medications Given This Visit: Medications at Discharge (Home Meds & RX) 1 [No Reported Medications] 12/13/22 Discharge Plan Discharge Discharge Orders: Discharge Patient (ONCE); Ordered 12/15/22 Ordered By: EMERALD GRAY Activity Restrictions/Additional Instructions: DISCHARGE TO HOME WITH HOME HEALTH DX: WEAKNESS, MALNUTRITION DIET: PER DIETITION RECOMMENDATIONS, ENCOURAGE PROTEIN/CALORIES FOLLOW UP WITH PCP SCHEDULED HOME HEALTH ORDERED F/U WITH PULM FOR LEFT UPPER LUNG NODULE ACTIVITY: OUTPATIENT PT/OT YOU HAVE A HOSPITAL FOLLOW UP APPOINTMENT WITH YOUR PRIMARY CARE PROVIDER, DR. NÚÑEZ, ON November AT 1:45PM. SHOULD YOU NEED TO RESCHEDULE YOU CAN CONTACT THEIR OFFICE AT [phone]. YOU HAVE BEEN REFERRED TO [facility]. THEY WILL BE IN TOUCH WITH YOU TO SCHEDULE APPOINTMENT FOR [facility] [employer] MACHINIST. SHOULD YOU HAVE ANY QUESTIONS OR NEED TO CONTACT THEM, THEIR PHONE NUMBER IS [phone]. Instructions: Weakness (GEN) Patient Disposition: HOME SELF-CARE Prescriptions: No Action No Reported Medications Did you review [place] [employer] for ALL controlled substances?: Not Applicable Discussed opioids are addictive and Narcan is available by prescription or from pharmacy.: No Condition: Stable
--- NOTE | 2022-12-15 12:49 | DCSUM ---
Admission Date Admission Date: 12/13/22 Discharge Date Discharge Date: 12/15/22 Admission Diagnosis Admission Diagnosis: 1. Acute metabolic encephalopathy in setting of UTI 2. UTI Discharge Diagnosis Discharge Diagnosis: 1. Acute metabolic encephalopathy in setting of UTI - Ruled out, likely a slow decline. UTI ruled out. 2. UTI - ruled out 3. Left upper lobe lung consolidation - Concerning with her history of significant weight loss. Outpatient pulm referral made. 4. Malnourishment with BM of 14.6 - Recommend outpatient ST and dietition follow up 5. History of CVA 6. Asthenia in setting malnourishment - PT/OT outpatient. Hospital Provider Hospital Provider: EMERALD GRAY PA-C, [facility] Primary Care Physician Primary Care Physician: LORAINE NÚÑEZ Summary of History and Physical Summary of History and Physical: Patient is a 67 year old female with pmhx of CVA, involuntary movements, who presented to ER with son for worsening weakness, involuntary movements, and weight loss. Patient had a negative CT head and CXR. Labs were unremarkable except for a suspect UA for UTI. Vitals stable. She was given rocephin and admitted to [facility]. Today the patient is feeling at her baseline although she is a poor historian. She is able to answer orientation questiosn appropriately and discussed history of CVA and left hip surgery, however she cannot recall any details regarding that history. She denies cp, sob, abd pain, difficulty urinating. She states she's had these "movements" for years. She knows she has lost weight but doesn't contribute it to anything specific. Spoke with patient's son Chaz who lives with her. He noticed weight loss at least within the past few months. States she's been eating and hasn't changed her diet. He states her involuntary movements of her extremities started when she had her stroke a few years ago, but they have worsened in the last two weeks. He feels she isn't comprehending as well and is talking a lot less than usual. She is having issues with walking. She's also having a lot of mood swings which he feels is unusual for her. Hospital Course Subjective: Patient was treated with rocephin. Urine culture showed no growth. CT c/a/p showed left upper lung consolidation that is masslike. MRI brain was negative for acute findings. Labs unremarkable. VSS. Patient was very confused, trying to leave, and getting out of bed multiple times night of 12/14.. Her safety was in jeopardy and she was given zyprexa 5 mg IM to help with agitation. Son, Chaz, who is her primary caregiver and lives with her present today, day of discharge. Discussed our concerns regarding her malnourishment, unsteadiness, high fall risk. Offered fpc placement but he declines at this time. Discussed assisted living although she may require more help than they could provide. He prefers to try to go home with home health at this time. Discussed in depth left lung abnormality and need for work out to r/o cause for weight loss. Pulm referral initiated, they will call with apt. He voiced understanding. Discussed special education director recommendations and need for outpatient follow up to facilitate weight gain and hopefully help with her mentation and weakness. He however understands her confusion is likely part of her natural decline. Appearance: Pleasant, No Apparent Distress, Alert and Other (Thin, malnourished. ) HEENT: MMM CVS: No Murmur, No Rubs and No Gallop Abdomen: Soft, Non-Tender and No Distention Respiratory: No Dyspnea Extremities: No Edema Vital Signs: Most Recent Vital Signs Temperature 97.5 F L 12/15/22 10:00 Temperature Source Temporal Artery Scan 12/15/22 10:00 Temperature Source Infrared 12/13/22 18:13 Pulse Rate 73 12/15/22 10:00 Respiratory Rate 20 12/15/22 10:00 Blood Pressure 152/91 H 12/15/22 10:00 Blood Pressure Mean 111 12/15/22 10:00 Blood Pressure Left Arm 164/80 12/14/22 00:02 Blood Pressure Location Left Arm 12/15/22 10:00 Blood Pressure Position Sitting 12/15/22 10:00 O2 Sat by Pulse Oximetry 98 12/15/22 10:00 Oxygen Delivery Method Room Air 12/15/22 10:00 Height 5 ft 10 in 12/14/22 08:36 Weight 102 lb 12/14/22 08:36 Telemetry Type Remote Telemetry 12/15/22 07:00 Telemetry Monitoring Continues 12/15/22 07:00 Telemetry Heart Rate 60 12/15/22 07:00 EKG RI Interval 0.15 12/15/22 07:00 EKG QRS Interval 0.07 12/15/22 07:00 Telemetry Strip Reading SR 12/15/22 07:00 Imaging: EXAMINATION: HEAD CT WITHOUT CONTRAST HISTORY: Confusion. Altered mental status. TECHNIQUE: Noncontrast CT of the brain was performed with images acquired from skull base to vertex. 2-D coronal and sagittal reformatted images were obtained from the axial source images. Contrast Dose: None. CT Dose Reduction Techniques Performed: Yes. COMPARISON: 02/11/2020. FINDINGS: Topogram demonstrates no significant abnormality. Intraparenchymal hemorrhage: None. Parenchyma: Mild encephalomalacia in the left frontal lobe at the site of a gatito hole. Claros and white matter differentiation is otherwise normal. Small benign calcifications in the right frontal lobe and left basal ganglia. No mass effect or midline shift. Chronic: Decreased attenuation of the periventricular white matter consistent with microangiopathic ischemic change. Vascular calcifications consistent with arthrosclerosis. Extra-axial spaces and basal cisterns: Normal. Ventricles: Enlargement of the ventricles and subarachnoid spaces consistent with atrophy. Paranasal sinuses and mastoid air cells: Visualized portions of paranasal sinuses are clear. Mastoid air cells are clear. Orbits: Normal visualized portions. Sella/Skull Base: Normal. Other: Scalp and visualized soft tissues are normal. Left frontal gatito hole. Calvarium is otherwise normal. IMPRESSION: 1. Atrophy. 2. Microangiopathic ischemic change. 3. Atherosclerosis. 4. No intracranial hemorrhage. 5. mild encephalomalacia in the left frontal lobe at the site of a small gatito hole. 6. Otherwise unremarkable noncontrast CT scan of the brain. EXAM: CHEST ONE-VIEW HISTORY: Cough COMPARISON: None FINDINGS: The cardiomediastinal silhouette is normal. The pulmonary vasculature is normal. No consolidating infiltrates are detected. Calcified granulomas are noted in the left upper lobe. No pneumothoraces or pleural effusions. IMPRESSION: 1. No acute cardiopulmonary disease. EXAM: CT CHEST WITH CONTRAST History: Cough Technique: [address] chest following intravenous contrast FINDINGS: Focal consolidative change of the left upper lobe measuring 1.7 x 1.5 cm biapical pleural parenchymal scarring. The lungs are globally hyperexpanded. Trace atherosclerotic calcification of the aorta without dissection. Maximum ascending diameter of the aorta 3.5 cm. No mediastinal lymphadenopathy. No acute chest wall abnormality. See abdominal CT for upper abdomen. Impression: 1. Mass-like consolidative change in the left upper lobe may represent scarring, infection or neoplasm. Further evaluation recommended, tissue sampling or PET scan. 2. Biapical pleural parenchymal scarring 3. The global hyperexpansion probably representing component of chronic obstructive pulmonary disease. EXAM: CT OF THE ABDOMEN AND PELVIS WITH CONTRAST History: Urinary tract infection Technique: 2.[address] of the abdomen and pelvis following intravenous contrast FINDINGS: The lung bases are clear. No significant liver abnormality. The adrenals, pancreas and spleen are unremarkable. The stomach and hiatus are unremarkable.The gallbladder appears normal. Bilateral extrarenal pelvis symmetrically distended. Nonobstructing calcifications in the right kidney measuring up to 8 mm diameter. No ureterolithiasis is seen. Atherosclerotic calcification of the aorta without aneurysm. Bowel loops demonstrate normal caliber. No inflamatory change seen in the mesentery or retroperitoneum. The appendix is normal. Pelvic genitourinary structures appear normal. Colonic diverticula of the sigmoid. No inflammatory change in the pelvic fat. No acute abnormality of the abdominal or pelvic skeleton. Left hip arthroplasty. Impression: 1. No inflammatory process, bowel or urinary obstruction 2. Nonobstructing nephrolithiasis of the right kidney 3. Colonic diverticulosis EXAM: BRAIN MRI WITHOUT CONTRAST HISTORY: Weakness, mood swings, worsening involuntary movement. TECHNIQUE: Multiplanar and multisequence MRI of the brain without the administration of intravenous contrast. COMPARISON: Brain CT dated 12/13/2022. Brain MRI dated 10/15/2018. FINDINGS: There is encephalomalacia in the left frontal lobe. Again seen is left frontal gatito hole. There is no intracranial mass. There is no acute ischemic infarct or acute intracranial hemorrhage. There is moderate cerebral parenchymal volume loss. There is no hydrocephalus. Scattered foci of T2/FLAIR hyperintense signal are present in the subcortical and periventricular white matter, most commonly seen in chronic white matter microvascular ischemic changes. Chronic lacunar infarcts are noted in bilateral periventricular white matter. The basilar cisterns are patent. The posterior fossa structures are within normal limits. There is grossly unchanged 9 mm T1 hyperintense lesion in the superior pituitary gland with suprasellar extension, possibly representing a Rathke cleft cyst or m icroadenoma. The paranasal sinuses and mastoid air cells are well aerated. The orbits are within normal limits. IMPRESSION: 1. No acute intracranial findings. 2. Grossly unchanged 9 mm T1 hyperintense lesion in the superior pituitary gland with suprasellar extension, possibly representing a Rathke cleft cyst or microadenoma. 3. Left frontal gatito hole. 4. Encephalomalacia in the left frontal lobe. 5. Moderate cerebral atrophy. 6. Chronic white matter microvascular ischemic changes. 7. Chronic lacunar infarcts in bilateral periventricular white matter Lab Results Last 24 Hours: 12/15/22 04:42 WBC 7.60 RBC 4.45 Hgb 14.6 Hct 43.2 MCV 97.1 MCH 32.8 H MCHC 33.8 RDW Coeff of Quique 12.9 Plt Count 251 Immature Gran % (Auto) 0.3 Neut % (Auto) 85.2 H Lymph % (Auto) 6.2 L Citrus % (Auto) 7.1 Eos % (Auto) 0.7 Baso % (Auto) 0.5 Neut # (Auto) 6.5 Lymph # (Auto) 0.5 L Citrus # (Auto) 0.5 Eos # (Auto) 0.1 Baso # (Auto) 0.0 Immature Gran # (Auto) 0.0 Sodium 138.2 Potassium 4.23 Chloride 104.1 Carbon Dioxide 33.8 H Anion Gap 4.53 BUN 18.1 H Creatinine 0.85 Estimated GFR (MDRD) 67.00 BUN/Creatinine Ratio 21.29 Glucose 102.8 Calcium 8.95 Total Bilirubin 0.73 AST 37.5 H ALT 23.2 Alkaline Phosphatase 65.7 Total Protein 6.50 Albumin 3.81 Globulin 2.69 Albumin/Globulin Ratio 1.41 Discharge Instructions Discharge Planning: DISCHARGE TO HOME WITH HOME HEALTH DX: WEAKNESS, MALNUTRITION DIET: PER DIETITION RECOMMENDATIONS, ENCOURAGE PROTEIN/CALORIES FOLLOW UP WITH PCP SCHEDULED HOME HEALTH ORDERED F/U WITH PULM FOR LEFT UPPER LUNG NODULE ACTIVITY: OUTPATIENT PT/OT YOU HAVE A HOSPITAL FOLLOW UP APPOINTMENT WITH YOUR PRIMARY CARE PROVIDER, DR. NÚÑEZ, ON November AT 1:45PM. SHOULD YOU NEED TO RESCHEDULE YOU CAN CONTACT THEIR OFFICE AT [phone]. YOU HAVE BEEN REFERRED TO [facility]. THEY WILL BE IN TOUCH WITH YOU TO SCHEDULE APPOINTMENT FOR WATER METER INSTALLER. SHOULD YOU HAVE ANY QUESTIONS OR NEED TO CONTACT THEM, THEIR PHONE NUMBER IS [phone]. Discharge Planning > 80 minutes DISCUSSED PLAN OF CARE WITH DR. Raysa MCDONOUGH. Medications Given This Visit: Medications Generic Name Dose Route Start Last Admin Trade Name Freq PRN Reason Stop Dose Admin Acetaminophen 650 mg 12/14/22 21:55 12/14/22 22:23 Acetaminophen 325 Mg Tablet PO 650 mg Q6H PRN Administration Pain Enoxaparin Sodium 40 mg 12/14/22 13:30 12/15/22 08:47 Enoxaparin Sodium 40 Mg/0.4 Ml Syr SUBCUT 40 mg DAILY ARLINE Administration Lactated Ringer's 1,000 mls @ 100 mls/hr 12/13/22 23:45 12/15/22 07:20 Lactated Ringers IV 100 mls/hr .Q10H ARLINE Administration CEFTRIAXONE/D5W 1 GM PREMIX 1 gm in 50 mls @ 75 mls/hr 12/14/22 21:00 12/14/22 21:03 Rocephin 1 Gm/50 Ml D5w IV 12/17/22 20:59 75 mls/hr BEDTIME ARLINE Administration Ondansetron HCl 4 mg 12/14/22 21:58 12/15/22 07:18 Ondansetron Hcl/Pf 4 Mg/2 Ml Sdv IVP 4 mg Q6H PRN Administration Nausea / Vomiting Sodium Chloride 1 syr 12/13/22 18:51 0.9% Sodium Chloride 10 Ml Disp.Syrin IVF PRN PRN To flush IV Medications Given This Visit: Medications at Discharge (Home Meds & RX) 1 [No Reported Medications] 12/13/22 Discharge Plan Discharge Discharge Orders: Discharge Patient (ONCE); Ordered 12/15/22 Ordered By: EMERALD GRAY Activity Restrictions/Additional Instructions: DISCHARGE TO HOME WITH HOME HEALTH DX: WEAKNESS, MALNUTRITION DIET: PER DIETITION RECOMMENDATIONS, ENCOURAGE PROTEIN/CALORIES FOLLOW UP WITH PCP SCHEDULED HOME HEALTH ORDERED F/U WITH PULM FOR LEFT UPPER LUNG NODULE ACTIVITY: OUTPATIENT PT/OT YOU HAVE A HOSPITAL FOLLOW UP APPOINTMENT WITH YOUR PRIMARY CARE PROVIDER, DR. NÚÑEZ, ON November AT 1:45PM. SHOULD YOU NEED TO RESCHEDULE YOU CAN CONTACT THEIR OFFICE AT [phone]. YOU HAVE BEEN REFERRED TO [facility]. THEY WILL BE IN TOUCH WITH YOU TO SCHEDULE APPOINTMENT FOR WATER METER INSTALLER. SHOULD YOU HAVE ANY QUESTIONS OR NEED TO CONTACT THEM, THEIR PHONE NUMBER IS [phone]. Instructions: Weakness (GEN) Patient Disposition: HOME SELF-CARE Prescriptions: No Action No Reported Medications Did you review [place] SALES RECRUITING COORDINATOR for ALL controlled substances?: Not Applicable Discussed opioids are addictive and Narcan is available by prescription or from pharmacy.: No Condition: Stable
[2022-12-15 13:37] VITALS: BP 133/73
== END 2022-12-15 14:10 | disposition home or self-care (01) ==
LOC: ED 17:46 → MEDSURG A 17:46
PROVIDERS: ADMIT Hospitalist; ATTEND Physician Assistant
DX: G25.5 Other chorea; I51.7 Cardiomegaly; J98.19 Other pulmonary collapse; R53.1 Weakness; R91.8 Other nonspecific abnormal finding of lung field; N39.0 Urinary tract infection, site not specified; I10 Essential (primary) hypertension; I69.351 Hemiplegia and hemiparesis following cerebral infarction affecting right dominant side; N20.0 Calculus of kidney; Z20.822 Contact with and (suspected) exposure to COVID-19; R62.7 Adult failure to thrive; G93.41 Metabolic encephalopathy; Z86.19 Personal history of other infectious and parasitic diseases; R63.4 Abnormal weight loss; Z87.891 Personal history of nicotine dependence; R41.82 Altered mental status, unspecified; N95.9 Unspecified menopausal and perimenopausal disorder; I63.9 Cerebral infarction, unspecified; E46 Unspecified protein-calorie malnutrition